=== PATIENT | female | born 1950 | race Caucasian/White ===

== ENCOUNTER 2020-03-09 07:29 | Outpatient (REF) | payer MEDICARE, SELFPAY ==
--- NOTE | 2020-03-09 07:34 | MM_ITS ---
EXAMINATION: MM SCREENING DIGITAL BREAST TOMOSYNTHESIS, BILATERAL CLINICAL INFORMATION: Screening. Asymptomatic. The lifetime risk of breast cancer based on the Tyrer-Cuzick Model is 5%. COMPARISON: Mammography: 07/27/2017, 12/13/2015 TECHNIQUE: Digital breast tomosynthesis is performed in both the craniocaudal and mediolateral oblique views along with computer-aided detection (CAD). Synthesized 2D images are generated from the tomosynthesis. Additional exaggerated left CC view is provided. FINDINGS: There are scattered areas of fibroglandular density (ACR BI-RADS breast composition Category b). There are no significant masses, abnormal calcifications, or other abnormalities. The axilla and skin contours are unremarkable. MM/MM tomosynthesis screening BI IMPRESSION: No mammographic evidence of malignancy. ASSESSMENT: BI-RADS 1: Negative RECOMMENDATION: Routine annual mammography screening. This patient's information was entered into a reminder system with a target due date for their next mammogram.
== END 2020-03-09 07:30 | disposition home or self-care (01) ==
LOC: HO.MAMMO 07:29
PROVIDERS: PCP Internal Medicine; Visit Provider Internal Medicine
DX: Z12.31 Encounter for screening mammogram for malignant neoplasm of breast (principal)
CPT/HCPCS: 77063; 77067

== ENCOUNTER 2020-10-07 12:59 | Outpatient (REF) | payer MEDICARE, SELFPAY ==
[2020-10-07 13:03] LABS: MANUAL DIFF FLAG NO
[2020-10-07 13:10] LABS: Basophils Absolute Auto 0.1 X10*3/uL (0.0-0.2); Basophils Percent Auto 0.6 % (0-2); Eosinophils Absolute Auto 0.5 X10*3/uL (0.0-0.4); Eosinophils Percent Auto 5.1 % (0-4); Hematocrit 39.2 % (37-47); Hemoglobin 11.9 g/dl (12.0-16.0); Imm Gran Abs Auto 0.03 X10*3/uL (0.00-0.03); Imm Gran Pct Auto 0.3 % (0.0-0.4); Lymphocytes Absolute Auto 3.3 X10*3/uL (1.2-4.9); Lymphocytes Percent Auto 36.8 % (20-40); Mean Corpuscular HGB Conc 30.4 g/dl (31.0-35.0); Mean Corpuscular Hemoglobin 24.5 pg (27.0-33.0); Mean Corpuscular Volume 80.7 fL (80-98); Mean Platelet Volume 11.8 fL (9.4-12.3); Monocytes Absolute Auto 0.7 X10*3/uL (0.1-1.2); Monocytes Percent Auto 7.5 % (2-11); Neutrophils Absolute Auto 4.5 X10*3/uL (2.0-8.3); Neutrophils Percent Auto 49.7 % (45-73); Platelet Count 355 X10*3/uL (160-400); Red Blood Count 4.86 X10*6/uL (4.20-5.50)
[2020-10-07 14:02] LABS: Alanine Aminotransferase 19 U/L (0-31); Alkaline Phosphatase 81 U/L (39-117); Anion Gap 16 (12-20); Aspartate Amino Transferase 20 U/L (5-31); Bilirubin Total 0.4 mg/dL (0.0-1.0); Blood Urea Nitrogen 30 mg/dL (9-16); Calcium 9.7 mg/dL (8.4-10.2); Carbon Dioxide 23 mmol/L (22-29); Chloride 106 mmol/L (96-108); Cholesterol 214 mg/dL; Estimated Glomerular Filt Rate 38; Glucose Fasting 90 mg/dL (60-99); HDL Cholesterol 74 mg/dL; LDL Cholesterol Calculated 114 mg/dl; Potassium 4.6 mmol/L (3.3-5.1); Sodium 140 mmol/L (135-145); Triglycerides 133 mg/dL
[2020-10-07 14:06] LABS: Reflex LDLD? No
[2020-10-07 14:07] LABS: Glucose Urine UA NEG (NEG); Leukocyte Esterase Urine TRACE (NEG); Nitrite Urine NEG (NEG); Urine Blood NEG (NEG); Urine Ketones NEG (NEG); Urine Protein NEG (NEG-TRACE)
[2020-10-07 14:13] LABS: Appearance Urine CLEAR; Color Urine YELLOW; Vitamin D 25-OH Total 36.1 ng/mL (>30)
[2020-10-07 14:57] LABS: RBC Urine 0 /HPF (0); Renal Epithelial Cells Urine TRACE /LPF; Squamous Epithelial Cell Urine 1+ /LPF
== END 2020-10-07 13:00 | disposition home or self-care (01) ==
LOC: HO.LNP 12:59
PROVIDERS: Visit Provider Internal Medicine
DX: E78.00 Pure hypercholesterolemia, unspecified (principal); E55.9 Vitamin D deficiency, unspecified; M85.80 Other specified disorders of bone density and structure, unspecified site; I10 Essential (primary) hypertension
CPT/HCPCS: 80053; 80061; 81001; 81003; 82306; 85025

== ENCOUNTER 2020-10-08 16:23 | Outpatient (REF) | payer MEDICARE, SELFPAY | END 2020-10-08 16:24 | disposition home or self-care (01) | LOC: HO.LNP 16:23 | PROVIDERS: Visit Provider Internal Medicine | DX: Z12.4 Encounter for screening for malignant neoplasm of cervix (principal) | CPT/HCPCS: 88142 ==

== ENCOUNTER 2020-12-06 10:11 | Outpatient (REF) | payer MEDICARE, SELFPAY ==
[2020-12-06 10:50] LABS: Blood Urea Nitrogen 16 mg/dL (9-16); Estimated Glomerular Filt Rate 45
== END 2020-12-06 10:12 | disposition home or self-care (01) ==
LOC: HO.LNP 10:11
PROVIDERS: Visit Provider Internal Medicine
DX: R79.9 Abnormal finding of blood chemistry, unspecified (principal)
CPT/HCPCS: 82565; 84520

== ENCOUNTER 2020-12-26 09:27 | Outpatient (REF) | payer MEDICARE, SELFPAY ==
--- NOTE | ~2020-12-26 | MM_ITS ---
EXAMINATION: BONE DENSITOMETRY CLINICAL INDICATION: Encounter for screening for osteoporosis. COMPARISON: Previous BD dated 10/24/2019 and baseline BD dated 10/05/2014. TECHNIQUE: Using a [employer] Messenger DXA System (software version: 13.1) manufactured by [employer], dual-energy x-ray absorptiometry was performed of the lumbar spine and left hip. The images are of good technical quality. Summary results are attached. FINDINGS: AP SPINE L1-L4: Current: BMD 0.867 g/cm2, Z-score -2.1, T-score -2.6, osteoporosis, 0.3% decrease from previous, 3.2% decrease from baseline (<5% change is not significant). Prior: BMD 0.870 g/cm2. Baseline: BMD 0.896 g/cm2. LEFT FEMUR, NECK: Current: BMD 0.680 g/cm2, Z-score -1.6, T-score -2.6, osteoporosis. Prior: BMD 0.750 g/cm2. Baseline: BMD 0.696 g/cm2. LEFT FEMUR, TOTAL: Current: BMD 0.765 g/cm2, Z-score -1.3, T-score -1.9, osteopenia, 5.6% decrease from previous, 2.8% decrease from baseline (<5% change is not significant). Prior: BMD 0.810 g/cm2. Baseline: BMD 0.787 g/cm2. IDENTIFIED RISK FACTORS: Height loss, menopause. HISTORY OF FRACTURE: None listed. MEDICATIONS: Vitamin D. MM/XR DEXA axial skeleton IMPRESSION: 1. DIAGNOSIS: Osteoporosis based on the lowest T-score value of -2.6 in the femoral neck and lumbar spine applying World Health Organization criteria. 2. 10-YEAR FRACTURE RISK PREDICTION, FRAX: Major osteoporotic fracture (clinical spine, forearm, hip or shoulder) 13.5%. Hip fracture 3.4%. 3. Treatment Recommendations: NOF guidelines recommend consideration for treatment in postmenopausal women and men age 50 and older presenting with the following: -A hip or vertebral (clinical or morphometric) fracture. -T-score less than or equal to -2.5 at the femoral neck or spine after appropriate evaluation to exclude secondary causes. -Low bone mass at the hip or spine and a 10-year fracture probability by FRAX of greater than or equal to 3% for hip fracture or greater than or equal to 20% for major osteoporotic fracture based on the [place] adapted WHO algorithm. 4. Other Recommendations: All treatment decisions require clinical judgment and consideration of individual patient factors, including patient preferences, comorbidities, previous drug use, risk factors not captured in the FRAX model (e.g. frailty, falls, vitamin D deficiency, increased bone turnover, interval significant decline in bone density) and possible under or overestimation of fracture risk by FRAX. Additional medical evaluation for secondary cause of low bone mineral density may be appropriate. FUTURE SCAN RECOMMENDATION: People with diagnosed cases of osteoporosis or at high risk for fracture should have regular bone mineral density tests. For patients eligible for Medicare, routine testing is allowed once every 2 years. The testing frequency can be increased to one year for patients who have rapidly progressing disease, those who are receiving or discontinuing medical therapy to restore bone mass, or have additional risk factors.
== END 2020-12-26 09:28 | disposition home or self-care (01) ==
LOC: HO.MAMMO 09:27
PROVIDERS: Visit Provider Internal Medicine
DX: Z13.820 Encounter for screening for osteoporosis (principal); M81.0 Age-related osteoporosis without current pathological fracture; Z78.0 Asymptomatic menopausal state; Z79.899 Other long term (current) drug therapy
CPT/HCPCS: 77080

== ENCOUNTER 2021-11-07 11:07 | Outpatient (REF) | payer MEDICARE, SELFPAY ==
[2021-11-07 11:12] LABS: MANUAL DIFF FLAG NO
[2021-11-07 11:30] LABS: Basophils Absolute Auto 0.1 X10*3/uL (0.0-0.2); Basophils Percent Auto 0.5 % (0-2); Eosinophils Absolute Auto 0.4 X10*3/uL (0.0-0.4); Eosinophils Percent Auto 4.7 % (0-4); Hematocrit 37.4 % (37.0-47.0); Hemoglobin 11.5 g/dl (12.0-16.0); Imm Gran Abs Auto 0.03 X10*3/uL (0.00-0.03); Imm Gran Pct Auto 0.3 % (0.0-0.4); Lymphocytes Absolute Auto 3.5 X10*3/uL (1.2-4.9); Lymphocytes Percent Auto 38.6 % (20-40); Mean Corpuscular HGB Conc 30.7 g/dl (31.0-35.0); Mean Corpuscular Volume 78.1 fL (80.0-98.0); Mean Platelet Volume 11.4 fL (9.4-12.3); Monocytes Absolute Auto 0.6 X10*3/uL (0.1-1.2); Monocytes Percent Auto 6.5 % (2-11); Neutrophils Absolute Auto 4.5 x10*3/uL (2.0-8.3); Neutrophils Percent Auto 49.4 % (45-73); Platelet Count 355 X10*3/uL (160-400); Red Blood Count 4.79 X10*6/uL (4.20-5.50); Red Cell Distribution Width 15.9 % (11.0-16.0); White Blood Count 9.2 X10*3/uL (4.8-10.8)
[2021-11-07 11:57] LABS: Alanine Aminotransferase 13 U/L (0-31); Albumin Level 3.7 g/dL (3.5-5.0); Alkaline Phosphatase 76 U/L (39-117); Anion Gap 16 (12-20); Aspartate Amino Transferase 15 U/L (5-31); Bilirubin Total 0.4 mg/dL (0.0-1.0); Blood Urea Nitrogen 22 mg/dL (9-16); Calcium 8.9 mg/dL (8.4-10.2); Carbon Dioxide 25 mmol/L (22-29); Chloride 107 mmol/L (96-108); Cholesterol 215 mg/dL; Estimated Glomerular Filt Rate 41; Glucose Fasting 81 mg/dL (60-99); HDL Cholesterol 76 mg/dL; LDL Cholesterol Calculated 113 mg/dl; Sodium 144 mmol/L (135-145); Total Protein 6.7 g/dL (6.5-8.0); Triglycerides 131 mg/dL
[2021-11-07 12:02] LABS: Vitamin D 25-OH Total 29.3 ng/mL (>30)
== END 2021-11-07 11:08 | disposition home or self-care (01) ==
LOC: HO.LNP 11:07
PROVIDERS: Visit Provider Internal Medicine
DX: E78.00 Pure hypercholesterolemia, unspecified (principal); E55.9 Vitamin D deficiency, unspecified; I10 Essential (primary) hypertension
CPT/HCPCS: 80053; 80061; 82306; 85025

== ENCOUNTER 2021-11-10 15:43 | Outpatient (REF) | payer MEDICARE, SELFPAY ==
[2021-11-10 16:01] LABS: Appearance Urine CLEAR; Color Urine YELLOW; Glucose Urine UA NEG (NEG); Leukocyte Esterase Urine TRACE (NEG); Nitrite Urine NEG (NEG); Specific Gravity - Urine 1.025 (1.005-1.025); Urine Blood NEG (NEG); Urine Ketones NEG (NEG); Urine Protein NEG (NEG-TRACE)
[2021-11-10 16:10] LABS: Bacteria Urine TRACE /LPF; RBC Urine 0 /HPF (0); Squamous Epithelial Cell Urine 1+ /LPF; WBC Urine 0-2 /HPF (0-4)
[2021-11-10 16:19] LABS: Iron 52 mcg/dL (30-160); Percent Iron Saturation 12 % (15-50); Total Iron Binding Capacity 449 mcg/dL (228-428); Unsaturated Iron Binding 397 ug/dL
== END 2021-11-10 15:44 | disposition home or self-care (01) ==
LOC: HO.LNP 15:43
PROVIDERS: Visit Provider Internal Medicine
DX: E78.00 Pure hypercholesterolemia, unspecified (principal); I10 Essential (primary) hypertension; R71.8 Other abnormality of red blood cells
CPT/HCPCS: 81001; 83540

== ENCOUNTER 2022-01-05 05:45 | Outpatient (REF) | payer MEDICARE, SELFPAY | END 2022-01-05 05:46 | disposition home or self-care (01) | LOC: HO.HOSX 05:45 | PROVIDERS: Visit Provider Physician Assistant | DX: Z13.89 Encounter for screening for other disorder (principal) ==

== ENCOUNTER 2022-05-08 10:48 | Outpatient (REF) | payer MEDICARE, SELFPAY ==
[2022-05-08 12:07] LABS: Alanine Aminotransferase 23 U/L (0-31); Albumin Level 3.8 g/dL (3.5-5.0); Alkaline Phosphatase 86 U/L (39-117); Aspartate Amino Transferase 19 U/L (5-31); Bilirubin Direct 0.2 mg/dL (0.0-0.5); Bilirubin Total 0.5 mg/dL (0.0-1.0); Cholesterol 224 mg/dL; HDL Cholesterol 68 mg/dL; LDL Cholesterol Calculated 126 mg/dl; Total Protein 6.7 g/dL (6.5-8.0); Triglycerides 153 mg/dL
[2022-05-08 13:48] LABS: Reflex LDLD? No
== END 2022-05-08 10:49 | disposition home or self-care (01) ==
LOC: HO.LNP 10:48
PROVIDERS: Visit Provider Internal Medicine
DX: E78.00 Pure hypercholesterolemia, unspecified (principal)
CPT/HCPCS: 80061; 80076

== ENCOUNTER 2022-11-06 11:02 | Outpatient (REF) | payer MEDICARE, SELFPAY ==
[2022-11-06 11:07] LABS: MANUAL DIFF FLAG NO
[2022-11-06 11:13] LABS: Basophils Percent Auto 0.5 % (0-2); Eosinophils Absolute Auto 0.4 X10*3/uL (0.0-0.4); Eosinophils Percent Auto 5.2 % (0-4); Hematocrit 36.7 % (37.0-47.0); Imm Gran Abs Auto 0.02 X10*3/uL (0.00-0.03); Imm Gran Pct Auto 0.3 % (0.0-0.4); Lymphocytes Absolute Auto 3.1 X10*3/uL (1.2-4.9); Lymphocytes Percent Auto 39.8 % (20-40); Mean Corpuscular Hemoglobin 23.4 pg (27.0-33.0); Mean Corpuscular Volume 78.1 fL (80.0-98.0); Mean Platelet Volume 12.4 fL (9.4-12.3); Monocytes Absolute Auto 0.5 X10*3/uL (0.1-1.2); Monocytes Percent Auto 6.5 % (2-11); Neutrophils Absolute Auto 3.7 x10*3/uL (2.0-8.3); Neutrophils Percent Auto 47.7 % (45-73); Platelet Count 321 X10*3/uL (160-400); Red Cell Distribution Width 15.8 % (11.0-16.0); White Blood Count 7.7 X10*3/uL (4.8-10.8)
[2022-11-06 11:29] LABS: Alanine Aminotransferase 25 U/L (0-31); Albumin Level 3.6 g/dL (3.5-5.0); Alkaline Phosphatase 73 U/L (39-117); Anion Gap 17 (12-20); Aspartate Amino Transferase 22 U/L (5-31); Bilirubin Total 0.4 mg/dL (0.0-1.0); Blood Urea Nitrogen 26 mg/dL (9-16); Calcium 8.7 mg/dL (8.4-10.2); Carbon Dioxide 22 mmol/L (22-29); Chloride 106 mmol/L (96-108); Cholesterol 168 mg/dL; Estimated Glomerular Filt Rate 42; Glucose Fasting 88 mg/dL (60-99); HDL Cholesterol 59 mg/dL; LDL Cholesterol Calculated 89 mg/dl; Sodium 141 mmol/L (135-145); Total Protein 6.6 g/dL (6.5-8.0); Triglycerides 102 mg/dL
[2022-11-06 11:43] LABS: Vitamin D 25-OH Total 30.5 ng/mL (>30)
== END 2022-11-06 11:03 | disposition home or self-care (01) ==
LOC: HO.LNP 11:02
PROVIDERS: Visit Provider Internal Medicine
DX: E78.00 Pure hypercholesterolemia, unspecified (principal); E55.9 Vitamin D deficiency, unspecified; I10 Essential (primary) hypertension
CPT/HCPCS: 80053; 80061; 82306; 85025

== ENCOUNTER 2022-11-30 14:50 | Outpatient (AMB) | payer MEDICARE, SELFPAY ==
--- NOTE | 2022-11-30 14:59 | MHC.OFFVIS ---
Intake Vital Signs 11/30/22 15:00 Height 5 ft 4.5 in Weight 248 lb BMI 41.9 BP 139/71 Blood Pressure Location Rt brachial Position Sitting Pulse 78 Intake Visit Reasons: iron deficiency Intake Note: Patient presents to in office visit today as a new patient for iron deficiency. CC: RUQ abd pain when bending down a certain way, small poops , and GERD. Denies other GI symptoms today. Allergies No Known Allergies Allergy (Verified 11/30/22 15:03) HPI HPI Comments History of Present Illness Details This is a 72 year old female with no significant PMH who is here for NELSY and hemoccult positive stool. Pt reports RUQ discomfort on certain positions such as bending down or moving in certain direction that has been ongoing x year. Otherwise, no N,V, changes in stool, melena or hematochezia. No fam hx of CRC. Last colo was in [address] Queen alongside an EGD. Esophagitis, colo normal. Got scheduled for a repeat colo in 2019 which got canceled due to pandemic and the pt did not remember to reschedule. On review of labs, appears to have had iron deficiency anemia x 1 year and has not changed much over the year. Pt does report taking a multivitamin that also contains iron. More recently when she was seen by her PCP also got a FOBT which was positive. PFSH Surgical History (Updated 11/30/22 @ 15:07 by ANDREZ Dye) H/O colonoscopy H/O left knee surgery S/P skin biopsy Family History (Updated 11/30/22 @ 15:08 by ANDREZ Dye) Paternal Grandfather Stomach cancer Social History (Updated 11/30/22 @ 15:07 by ANDREZ Dye) Alcohol intake: never Patient Tobacco Use Status: Never used Tobacco Review of Systems Const All systems reviewed & are unremarkable except as noted in HPI and below Physical Exam Vital Signs: Last Vital Signs Pulse 78 11/30/22 15:00 BP 139/71 11/30/22 15:00 BMI result Body Mass Index 41.9 Gen appear: NAD HEENT: nonicteric, no cervical lymphadenopathy Chest: CTA CVS: Regular S1/S2 Abd: soft, nontender, nondistended, bowel sounds + Ext: no peripheral edema Neuro: A/Ox3, noted to move all extremities spontaneously Psych: interacting appropriately Assessment & Plan Assessment & Plan (1) Iron deficiency anemia: Code(s): D50.9 - Iron deficiency anemia, unspecified Plan Longstanding iron deficiency anemia that has not progressed however FOBT positive now. Ddx include esophagitis, gastritis, PUD, large friable polyp or mass. -? Check CBC, iron studies -? EGD/colo to be booked in the next few weeks -? Split PEG prep instructions reviewed with the pt and handout given as well. Follow up after procedures Orders: Orders Ferritin Today D50.9 - Iron deficiency anemia, unspecified IRON PROFILE Today D50.9 - Iron deficiency anemia, unspecified Complete Blood Count no Diff Today D50.9 - Iron deficiency anemia, unspecified Medications: New peg 3350-electrolytes 236-22.74-6.74 -5.86 gram (Golytely) as per split prep instructions, until fecal effluent is clear 240 mL PO Q10M 4,000 mL 0RF colonoscopy Coding Level of Care Code New Pt Level 4 (28004) Diagnoses Iron deficiency anemia D50.9
[2022-11-30 15:00] VITALS: BP 139/71; PULSE 78; BMI 41.9
== END 2022-11-30 16:58 | disposition home or self-care (01) ==
PROVIDERS: PCP Internal Medicine; Visit Provider Internal Medicine
DX: D50.9 Iron deficiency anemia, unspecified (principal)
CPT/HCPCS: 99204

== ENCOUNTER → 2022-11-30 14:50 | Outpatient (BNVA) | payer MEDICARE, SELFPAY | PROVIDERS: PCP Internal Medicine; Visit Provider Internal Medicine | DX: D50.9 Iron deficiency anemia, unspecified (principal) | CPT/HCPCS: 99202 ==

== ENCOUNTER 2022-12-18 09:35 | Outpatient (REF) | payer MEDICARE, SELFPAY ==
[2022-12-18 10:50] LABS: Hematocrit 35.7 % (37.0-47.0); Hemoglobin 10.8 g/dl (12.0-16.0); Mean Corpuscular HGB Conc 30.3 g/dl (31.0-35.0); Mean Corpuscular Hemoglobin 23.5 pg (27.0-33.0); Mean Corpuscular Volume 77.6 fL (80.0-98.0); Mean Platelet Volume 11.6 fL (9.4-12.3); Platelet Count 346 X10*3/uL (160-400); Red Cell Distribution Width 15.1 % (11.0-16.0); White Blood Count 7.8 X10*3/uL (4.8-10.8)
[2022-12-18 11:29] LABS: Iron 51 mcg/dL (30-160); Percent Iron Saturation 16 % (15-50); Total Iron Binding Capacity 324 mcg/dL (228-428); Unsaturated Iron Binding 273 ug/dL
[2022-12-18 11:46] LABS: Ferritin 15 ng/mL (10-250)
== END 2022-12-18 09:36 | disposition home or self-care (01) ==
LOC: HO.LAB 09:35
PROVIDERS: PCP Internal Medicine; Visit Provider Internal Medicine
DX: D50.9 Iron deficiency anemia, unspecified (principal)
CPT/HCPCS: 36415; 82728; 83540; 85027

== ENCOUNTER 2023-02-04 10:21 | Day surgery (SDC) | payer MEDICARE, SELFPAY ==
[2023-02-02 10:43] VITALS: BMI 41.9
--- NOTE | 2023-02-03 10:36 | HO.ANESPROP2 ---
Documented by User: Sierra Campoverde NP 02/03/23 10:37 HPI - Anesthesia Eval Consult details Narrative: 72yo F for Upper Endoscopy and Colonoscopy PMFSH Active Problems Active Problems: All Active Problems (Updated 12/01/22 @ 14:08 by Kiki Alvarado MD) Iron deficiency anemia (Acute) Past Medical History Medical History (Updated 02/04/23 @ 10:34 by Leann Patel RN) High cholesterol HTN (hypertension) Family History Family History (Updated 11/30/22 @ 15:08 by ANDREZ Dye) Paternal Grandfather Stomach cancer Surgical History Surgical History (Updated 11/30/22 @ 15:07 by ANDREZ Dye) H/O left knee surgery S/P skin biopsy H/O colonoscopy Social History Social History (Updated 11/30/22 @ 15:07 by ANDREZ Dye) Alcohol intake: never Patient Tobacco Use Status: Never used Tobacco Use of substances other than those prescribed or required for medical reasons: No Are you DNR?: No Advance Directives: No Advance Directives Information Provided: Yes Meds Allergies Allergy/AdvReac Type Severity Reaction Status Date / Time walnut Allergy Unknown Verified 02/04/23 10:45 Home Medications Medication Instructions Recorded Confirmed Last Taken Type atorvastatin 40 mg tablet 40 mg PO DAILY 11/30/22 Unknown History cholecalciferol (vitamin D3) 25 25 mcg PO DAILY 11/30/22 Unknown History mcg (1,000 unit) capsule omeprazole magnesium 20 mg 20 mg PO DAILY 11/30/22 Unknown History tablet,delayed release (Prilosec OTC) valsartan 320 1 tab PO DAILY 11/30/22 Unknown History mg-hydrochlorothiazide 12.5 mg tablet vit C 250 mg-vit E 90 mg-zinc 40 1 tab PO BID 11/30/22 Unknown History mg-copper 1 [id number] capsule (PreserVision AREDS-2) Exam Exam Date and Time: February 03, 2023 1036 Height,Weight and Vital Signs: Height 5 ft 4.5 in Weight 112.491 kg Pertinent Lab Results Pertinent Lab Results: Laboratory Tests 11/06/22 11/06/22 12/18/22 07:30 07:30 09:50 WBC 7.8 Hgb 10.8 L Hct 35.7 L Plt Count 346 Sodium 141 Potassium 4.0 Chloride 106 Carbon Dioxide 22 BUN 26 H Creatinine 1.25 Assessment and Plan Assessment Anesthesia Assessment: Chart Reviewed Documented by User: Guilherme Charles MD 02/04/23 11:16 [facility] Past Medical History Medical History (Updated 02/04/23 @ 10:34 by Leann Patel RN) High cholesterol HTN (hypertension) Family History Family History (Updated 11/30/22 @ 15:08 by ANDREZ Dye) Paternal Grandfather Stomach cancer Family history of problems with anesthesia: No Surgical History Surgical History (Updated 11/30/22 @ 15:07 by ANDREZ Dye) H/O left knee surgery S/P skin biopsy H/O colonoscopy History of Problems with Anesthesia: No Social History Social History (Updated 11/30/22 @ 15:07 by ANDREZ Dye) Alcohol intake: never Patient Tobacco Use Status: Never used Tobacco Use of substances other than those prescribed or required for medical reasons: No Are you DNR?: No Advance Directives: No Advance Directives Information Provided: Yes Meds Allergies Allergy/AdvReac Type Severity Reaction Status Date / Time walnut Allergy Unknown Verified 02/04/23 10:45 Home Medications Medication Instructions Recorded Confirmed Last Taken Type atorvastatin 40 mg tablet 40 mg PO DAILY 11/30/22 Unknown History cholecalciferol (vitamin D3) 25 25 mcg PO DAILY 11/30/22 Unknown History mcg (1,000 unit) capsule omeprazole magnesium 20 mg 20 mg PO DAILY 11/30/22 Unknown History tablet,delayed release (Prilosec OTC) valsartan 320 1 tab PO DAILY 11/30/22 Unknown History mg-hydrochlorothiazide 12.5 mg tablet vit C 250 mg-vit E 90 mg-zinc 40 1 tab PO BID 11/30/22 Unknown History mg-copper 1 [id number] capsule (PreserVision AREDS-2) Exam Airway Mallampati Class: II TM Dist: <=3cm Neck ROM: Full Loose/Missing/Broken Teeth: No Heart: ok Lungs: ok Assessment and Plan Assessment Anesthesia Assessment: Anesthesia Plan Discussed Final Anesthetic Review Family History of Problems with Anesthesia: No History of Problems with Anesthesia: No NPO: Yes ASA Class: III Final Preanesthetic Review: No Changes in Pt Med Stat, Meds/Allgs Chart Reviewed, Consent Obtained/Reviewed and Anes Risks/Benef Reviewed Patient Risk: Intermediate Procedure Risk: Intermediate Anesthetic Plan Anesthetic Plan: MAC: and Agree w/ Assess. and Plan Disposition: Standard PACU
[2023-02-04 10:54] VITALS: BP 151/79; PULSE 100; RESP 16; TEMP 36.9; O2SAT 97
--- NOTE | 2023-02-04 11:03 | P.OP_ITS ---
Operative Note Operative Note Date of Service: 02/04/23 Narrative: Procedure:?Esophagogastroduodenoscopy and colonoscopy Endoscopist:?Kiki Alvarado MD Indication:?Iron deficiency anemia Anesthesia Provider:?Dr González Cabrera Anesthesia Type:?MAC Instrument:?Olympus GIF-H190, [id number]-[id number] Colonoscopy Procedure:? The procedure, indications, preparation and potential complications were reviewed with the patient who indicated understanding and gave written informed consent to proceed. A digital rectal exam was performed which was abnormal for ext hemorrhoids.? A distal attachment cap was affixed to the tip of the scope and the colonoscope was then inserted through the anus and advanced through the colon to the cecum at 75 cm and terminal ileum. Appendiceal orifice and ileocecal valve were identified. Mucosa was carefully examined under high definition white light as the instrument was slowly withdrawn in a retrograde panoramic fashion. Retroflexion was performed in rectum. The procedure was not difficult. There were no immediate obvious complications. The quality of the prep was BBPS: 3+2+2 = adequate Withdrawal time: 11 minutes Limitations: No limitation. Findings: Mucosa: Mucosa was normal to cecum and terminal ileum. Protruding lesions: * 1 sessile polyp of size 4 mm was noted in the descending colon. Cold snare polypectomy was performed. The polyp was completely removed and retrieved. * Large internal hemorrhoids with stigmata of recent bleeding. EGD Procedure:?? The patient was then turned for the upper endoscopy. The endoscope was introduced through the bite block and advanced to the second part of duodenum. The mucosa was carefully examined on slow withdrawal of the endoscope. There were no immediate complications. Patient tolerated the procedure well. EGD Findings:? * Esophagus:?Tortuous esophagus with tertiary contraction. There was a large paraesophageal hernia with the diaphragmatic pinch at 36 cm and the Z line at 30 cm. * Stomach: Too numerous to count pale appearing polyps were noted in the cardia and fundus of the stomach. COld forceps polypectomies were done for larger ones and sent for histology. The gastric rugal folds were very thick and the stomach was somewhat difficult to insufflate completely. Retroflexion was performed in the cardia showed Hill grade IV hiatal hernia. Random cold forceps biopsies were taken for histology. * Duodenum:?Normal duodenal mucosa noted to the extent examined. Impression: 1. Tortuous esophagus with tertiary contractions 2. Paraesophageal hernia 3. Gastric polyps (biopsies) 4. Thickened gastric folds and difficult to insufflate stomach (biopsy) 5. Normal duodenum 6. Colon and terminal ileum mucosa normal 7. 1 polyp removed 8. Internal and external hemorrhoids Recommendations:?? * Await pathology results. * Will get an UGIS for radiographic evidence of distensibility of the stomach as well as contrast enhanced CT abd/pel to r/o linitis plastica * Colonoscopy in 7-10 years if polyp is an adenoma, 5 years if it is an SSL.
--- NOTE | 2023-02-04 11:03 | MHC.SHP ---
Pre-Procedural Eval Section A Date of Service: 02/04/23 Section B Chief Complaint: Iron deficiency anemia Relevant Social History: None Present Medications: see Short Stay Collaborative assessment Medical History: No relevant PMH History of Previous Operations: No relevant previous surgery Allergies: Allergies Allergy/AdvReac Type Severity Reaction Status Date / Time walnut Allergy Unknown Verified 02/04/23 10:45 Review of Systems Review of Systems Comment: Ten point ROS negative Exam Exam Comment: Gen appear: No acute distress HEENT: no icterus Chest: No overt resp distress Abd: soft, nontender, nondistended Psych: Stable affect, answering questions appropriately Neuro: A/Ox3 noted to move all extremities spontaneously Ext: no peripheral edema Plan Diagnosis/Plan: Unchanged I have reviewed the history and physical and performed a pertinent physical examination on my patient. No changes have occurred unless specified. Time Spent With Patient Time: Total time managing care of this patient today ____ minutes.
[2023-02-04 13:45] VITALS: BP 121/68; PULSE 83; RESP 16; TEMP 36.4; O2SAT 99
[2023-02-04 14:00] VITALS: BP 124/67; PULSE 66; RESP 16; TEMP 36.4; O2SAT 99
== END 2023-02-04 14:37 | disposition home or self-care (01) ==
PROVIDERS: PCP Internal Medicine; Visit Provider Internal Medicine
PROC: (CPT 43239; principal; 2023-02-04 12:20)
DX: K31.7 Polyp of stomach and duodenum (principal); K29.80 Duodenitis without bleeding; K22.4 Dyskinesia of esophagus; K44.9 Diaphragmatic hernia without obstruction or gangrene; K31.89 Other diseases of stomach and duodenum; K64.8 Other hemorrhoids; K64.4 Residual hemorrhoidal skin tags; K63.5 Polyp of colon; K21.9 Gastro-esophageal reflux disease without esophagitis; D50.9 Iron deficiency anemia, unspecified
CPT/HCPCS: 43239; 45385; 88305; 88342

== ENCOUNTER → 2023-02-04 10:21 | Outpatient (BNV) | payer MEDICARE, SELFPAY | PROVIDERS: PCP Internal Medicine; Visit Provider Internal Medicine | DX: D50.9 Iron deficiency anemia, unspecified (principal); K31.7 Polyp of stomach and duodenum; K22.89 Other specified disease of esophagus; K29.80 Duodenitis without bleeding; K63.5 Polyp of colon; K64.8 Other hemorrhoids | CPT/HCPCS: 43239; 45385 ==

== ENCOUNTER 2023-02-23 09:53 | Outpatient (AMB) | payer MEDICARE, SELFPAY ==
--- NOTE | 2023-02-23 09:58 | MHC.OFFVIS ---
Intake Vital Signs 02/23/23 10:00 Height 5 ft 4.5 in Weight 246 lb 14.684 oz BMI 41.7 BP 165/74 H Blood Pressure Location Lt brachial Position Sitting Pulse 80 Intake Visit Reasons: S/P EGD, [place]; Dr. Alvarado Intake Note: Lianna presents in the office as a follow up to her double. CC: Just curious of some of the results that she was told after the procedures. Allergies walnut Allergy (Verified 02/04/23 10:45) Unknown HPI HPI Comments History of Present Illness Details This is a 72 year old female with no significant PMH who is here for NELSY and hemoccult positive stool. 11/30/22: Pt reports RUQ discomfort on certain positions such as bending down or moving in certain direction that has been ongoing x year. Otherwise, no N,V, changes in stool, melena or hematochezia. No fam hx of CRC. Last colo was in [address] Queen alongside an EGD. Esophagitis, colo normal. Got scheduled for a repeat colo in 2019 which got canceled due to pandemic and the pt did not remember to reschedule. On review of labs, appears to have had iron deficiency anemia x 1 year and has not changed much over the year. Pt does report taking a multivitamin that also contains iron. More recently when she was seen by her PCP also got a FOBT which was positive. EGD/colo 02/04/23: 1. Tortuous esophagus with tertiary contractions 2. Paraesophageal hernia 3. Gastric polyps (biopsies) 4. Thickened gastric folds and difficult to insufflate stomach (biopsy) 5. Normal duodenum 6. Colon and terminal ileum mucosa normal 7. 1 polyp removed 8. Internal and external hemorrhoids Path: A. Colon, descending, polyp: Hyperplastic polyp. B. Duodenum, biopsy: Duodenal mucosa with preserved villi and focal mild features of chronic/ non-specific duodenitis. C. Stomach, random, thickened gastric fold, biopsy: Gastric body mucosa with focal minimal chronic inactive inflammation and features suggesting proton pump inhibitor effect with incipient fundic gland polyp formation; negative for intestinal metaplasia and dysplasia. D. Gastric polyps, biopsy: Fundic gland polyps with focal minimal chronic inactive inflammation; negative for intestinal metaplasia and dysplasia. 02/23/23: Findings of bidirectional endoscopy reviewed with the pt including apparent incomplete insufflation on EGD. Pt remains largely asymptomatic. Further imaging to assess for stomach distention for concern of linitis already ordered on the day of endoscopy. She has not yet heard from Radiology about schedulung the CT or the UGIS, will follow up on this with the team. [facility] Medical History (Updated 02/05/23 @ 13:03 by Kiki Alvarado MD) High cholesterol HTN (hypertension) Surgical History (Updated 02/23/23 @ 10:01 by CORAZON Jovel) History of esophagogastroduodenoscopy (EGD) H/O left knee surgery S/P skin biopsy H/O colonoscopy Family History (Updated 11/30/22 @ 15:08 by ANDREZ Dye) Paternal Grandfather Stomach cancer Social History (Updated 11/30/22 @ 15:07 by ANDREZ Dye) Alcohol intake: never Patient Tobacco Use Status: Never used Tobacco Review of Systems Const All systems reviewed & are unremarkable except as noted in HPI and below Physical Exam Vital Signs: Last Vital Signs Pulse 80 02/23/23 10:00 BP 165/74 H 02/23/23 10:00 BMI result Body Mass Index 41.7 Gen appear: NAD HEENT: nonicteric, no cervical lymphadenopathy Chest: CTA CVS: Regular S1/S2 Abd: soft, nontender, nondistended, bowel sounds + Ext: no peripheral edema Neuro: A/Ox3, noted to move all extremities spontaneously Psych: interacting appropriately Assessment & Plan Assessment & Plan (1) Iron deficiency anemia: Code(s): D50.9 - Iron deficiency anemia, unspecified (2) Gastric wall thickening: Code(s): K31.89 - Other diseases of stomach and duodenum Plan Longstanding iron deficiency anemia that has not progressed with prominent gastric folds and subjective incomplete distention noted on EGD. H Pylori negative. Ddx include gastritis, linitis plastica. - CT abd/pel with contrast - UGIS (both already ordered last month, msg sent to to follow up) -?Start iron supplementation, can take senna PRN for constipation with these - Recheck CBC and ferritin in 3 months - If above imaging normal and CBC improves with iron supplementation, will monitor conservatively. Follow up in 3 months Orders: Orders Ferritin 3 Months D50.9 - Iron deficiency anemia, unspecified Complete Blood Count no Diff 3 Months D50.9 - Iron deficiency anemia, unspecified Medications: New ferrous fumarate Take one pill with a few sips of orange juice. 325 mg PO DAILY 90 tabs 1RF 90 days sennosides (Natural Senna Laxative) 17.2 mg (2 x 8.6 mg) PO DAILY 180 tabs 0RF 90 days Coding Level of Care Code Est Pt Level 4 (44129) Diagnoses Iron deficiency anemia D50.9 Gastric wall thickening K31.89
[2023-02-23 10:00] VITALS: BP 165/74; PULSE 80; BMI 41.7
== END 2023-02-23 11:03 | disposition home or self-care (01) ==
PROVIDERS: PCP Internal Medicine; Visit Provider Internal Medicine
DX: D50.9 Iron deficiency anemia, unspecified (principal); K31.89 Other diseases of stomach and duodenum
CPT/HCPCS: 99214

== ENCOUNTER → 2023-02-23 09:53 | Outpatient (BNVA) | payer MEDICARE, SELFPAY | PROVIDERS: PCP Internal Medicine; Visit Provider Internal Medicine | DX: D50.9 Iron deficiency anemia, unspecified (principal); K31.89 Other diseases of stomach and duodenum | CPT/HCPCS: 99212 ==

== ENCOUNTER 2023-03-03 10:08 | Outpatient (REF) | payer MEDICARE, SELFPAY ==
--- NOTE | ~2023-03-03 | FL_ITS ---
EXAMINATION: XR FLUOROSCOPY UPPER GI WITH AIR CLINICAL INFORMATION: Epigastric pain, abnormal endoscopy COMPARISON: None. Endoscopy report from 02/05/2023 reviewed. TECHNIQUE: Fluoroscopic air contrast upper GI examination was performed utilizing standard techniques with thin and thick barium and effervescent granules. Numerous spot images were obtained. FINDINGS: Lateral cine images of the oropharynx and hypopharynx demonstrate normal swallow mechanism with normal epiglottic inversion and soft palate elevation. No tracheal penetration, glottic or subglottic aspiration identified. No nasopharyngeal reflux present. Hypopharyngeal structures appear normal without evidence of mass or diverticulum. There was no pronounced cricopharyngeal achalasia with ballooning of the hypopharynx. Dual and single contrast images of the esophagus demonstrate a patulous esophagus with diffuse nonpropulsive tertiary contractions consistent with esophageal dysmotility. No evidence of stricture, mass, or ulcerations identified. A large type III hiatal hernia is present. Gastroesophageal reflux is seen up to the thoracic inlet. Dual contrast and single contrast images of the stomach demonstrated a normal contour. The gastric mucosal folds are thickened. No masses , ulceration, or other abnormality are seen. Contrast freely passed into the gastric antrum and duodenal bulb without delay. Single and air-contrast images of the duodenal bulb demonstrate no abnormality. The duodenal sweep has a normal appearance, course, and mucosal fold appearance. The imaged proximal jejunum has a normal fold pattern and caliber. FLUOROSCOPY TIME: 4 minutes 11 seconds Number of Spot Images: 14 Number of Cine: 12 DOSE AREA PRODUCT: 3362 uGy-m2 (microgray-meter squared) FL/FL upper GI w air IMPRESSION: 1. 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 Patulous esophagus with diffuse nonpropulsive tertiary contractions consistent with esophageal dysmotility 3. Large type III hiatal hernia 4. Significant gastroesophageal reflux 5. Thickened gastric mucosal folds. This was also seen on endoscopy per report. This procedure was performed by Moe Montes PA-C, and supervised by Dr. Montaño
== END 2023-03-03 10:09 | disposition home or self-care (01) ==
LOC: HO.XRAY 10:08
PROVIDERS: PCP Internal Medicine; Visit Provider Internal Medicine
DX: K31.89 Other diseases of stomach and duodenum (principal)
CPT/HCPCS: 74246

== ENCOUNTER → 2023-03-03 10:10 | Outpatient (BNV) | payer MEDICARE, SELFPAY | PROVIDERS: PCP Internal Medicine; Visit Provider Radiology Diagnostic Radiology | DX: R10.13 Epigastric pain (principal) | CPT/HCPCS: 74246 ==

== ENCOUNTER 2023-03-18 08:54 | Outpatient (REF) | payer MEDICARE, SELFPAY ==
[2023-03-18 10:35] LABS: Anion Gap 13 (12-20); Blood Urea Nitrogen 20 mg/dL (9-16); Carbon Dioxide 27 mmol/L (22-29); Chloride 105 mmol/L (96-108); Estimated Glomerular Filt Rate 46; Glucose Random 86 mg/dL (60-115); Potassium 4.4 mmol/L (3.3-5.1); Sodium 141 mmol/L (135-145)
== END 2023-03-18 08:55 | disposition home or self-care (01) ==
LOC: HO.LAB 08:54
PROVIDERS: PCP Internal Medicine; Visit Provider Internal Medicine
DX: D50.9 Iron deficiency anemia, unspecified (principal)
CPT/HCPCS: 36415; 80048

== ENCOUNTER 2023-04-01 07:58 | Outpatient (REF) | payer MEDICARE, SELFPAY ==
[2023-04-01] MEDS: iohexoL 350 MG/ML 100 ML INFUS..BTL IV (11:12)
[2023-04-01] MEDS: Barium Sulfate Oral (Vanilla) 450 ML ORAL.SUSP 900 ML PO (11:13)
== END 2023-04-01 07:59 | disposition home or self-care (01) ==
LOC: HO.CT 07:58
PROVIDERS: PCP Internal Medicine; Visit Provider Internal Medicine
DX: K31.89 Other diseases of stomach and duodenum (principal)
CPT/HCPCS: 74177; Q9967

== ENCOUNTER 2023-05-14 10:53 | Outpatient (REF) | payer MEDICARE, SELFPAY ==
[2023-05-14 11:21] LABS: Alanine Aminotransferase 24 U/L (0-31); Albumin Level 3.6 g/dL (3.5-5.0); Alkaline Phosphatase 84 U/L (39-117); Aspartate Amino Transferase 23 U/L (5-31); Bilirubin Direct 0.2 mg/dL (0.0-0.5); Bilirubin Total 0.4 mg/dL (0.0-1.0); Cholesterol 197 mg/dL (<200); HDL Cholesterol 64 mg/dL (>40); LDL Cholesterol Calculated 112 mg/dL (<100); Total Protein 7.1 g/dL (6.5-8.0); Triglycerides 107 mg/dL (<150)
[2023-05-14 11:26] LABS: Reflex LDLD? No
== END 2023-05-14 10:54 | disposition home or self-care (01) ==
LOC: HO.LNP 10:53
PROVIDERS: Visit Provider Internal Medicine
DX: E78.00 Pure hypercholesterolemia, unspecified (principal)
CPT/HCPCS: 80061; 80076

== ENCOUNTER 2023-06-28 09:26 | Outpatient (AMB) | payer MEDICARE, SELFPAY ==
--- NOTE | 2023-06-28 09:33 | MHC.OFFVIS ---
Intake Vital Signs 06/28/23 09:43 Height 5 ft 4.5 in Weight 253 lb 15.56 oz BMI 42.9 BP 175/78 H Blood Pressure Location Lt brachial Position Sitting Pulse 99 Pulse Source Pulse Oximeter Intake Visit Reasons: 3 month follow up r/s from 06/02 Intake Note: Pt presents to the office today for a 3 month follow up. She states she is feeling well and denies any concerns at this time. Allergies walnut Allergy (Verified 06/28/23 09:45) Unknown HPI HPI Comments History of Present Illness Details This is a 72 year old female with no significant PMH who is here for thickened gastric folds and anemia. Pt reports RUQ discomfort on certain positions such as bending down or moving in certain direction that has been ongoing x year. Otherwise, no N,V, changes in stool, melena or hematochezia. No fam hx of CRC. Last colo was in [address] Queen alongside an EGD. Esophagitis, colo normal. Got scheduled for a repeat colo in 2019 which got canceled due to pandemic and the pt did not remember to reschedule. On review of labs, appears to have had iron deficiency anemia x 1 year and has not changed much over the year. Pt does report taking a multivitamin that also contains iron. More recently when she was seen by her PCP also got a FOBT which was positive. EGD/colo 02/04/23: 1. Tortuous esophagus with tertiary contractions 2. Paraesophageal hernia 3. Gastric polyps (biopsies) 4. Thickened gastric folds and difficult to insufflate stomach (biopsy) 5. Normal duodenum 6. Colon and terminal ileum mucosa normal 7. 1 polyp removed 8. Internal and external hemorrhoids Path: A. Colon, descending, polyp: Hyperplastic polyp. B. Duodenum, biopsy: Duodenal mucosa with preserved villi and focal mild features of chronic/ non-specific duodenitis. C. Stomach, random, thickened gastric fold, biopsy: Gastric body mucosa with focal minimal chronic inactive inflammation and features suggesting proton pump inhibitor effect with incipient fundic gland polyp formation; negative for intestinal metaplasia and dysplasia. D. Gastric polyps, biopsy: Fundic gland polyps with focal minimal chronic inactive inflammation; negative for intestinal metaplasia and dysplasia. 02/23/23: Findings of bidirectional endoscopy reviewed with the pt including apparent incomplete insufflation on EGD. Pt remains largely asymptomatic. Further imaging to assess for stomach distention for concern of linitis already ordered on the day of endoscopy. She has not yet heard from Radiology about schedulung the CT or the UGIS, will follow up on this with the team. 06/28/23: Had to reschedule a follow up visit due to car problems. No GI concerns today. No abd pain, N,V, D bloating, early satiety, unintentional weight loss. H Pylori neg on bx. UGIS and CT reviewed. In summary - consistent with EGD findings but no lymphadenopathy or other concerning lesion noted. [facility] Medical History High cholesterol HTN (hypertension) Surgical History History of esophagogastroduodenoscopy (EGD) H/O left knee surgery S/P skin biopsy H/O colonoscopy Family History Paternal Grandfather Stomach cancer Social History Alcohol intake: never Patient Tobacco Use Status: Never used Tobacco Review of Systems Const All systems reviewed & are unremarkable except as noted in HPI and below Physical Exam Vital Signs: Last Vital Signs Pulse 99 06/28/23 09:43 BP 175/78 H 06/28/23 09:43 BMI result Body Mass Index 42.9 NAD Abd soft, nondistended No overt resp distress a/oX3, normal gait Assessment & Plan Assessment & Plan (1) Iron deficiency anemia: Code(s): D50.9 - Iron deficiency anemia, unspecified (2) Gastric wall thickening: Code(s): K31.89 - Other diseases of stomach and duodenum Plan Longstanding iron deficiency anemia that has not progressed with prominent gastric folds and subjective incomplete distention noted on EGD. H Pylori negative. No red flags to suggest malignancy though remains on DDx. Other differentials include infiltrative disease such as amyloid, sarcoidosis, lymphoma. POlyposis frankie as diffuse FGPs noted on EGD, hypertrophic gastropathy etc. H Pylori neg. No LN or ascites noted on scan. Plan: - Recheck CBC and iron labs (pt on iron supplementation) - SPEP, UPEP - Referral to tertiary care center for deep bx and possibly EUS eval Follow up after above referral processed Orders: Orders Complete Blood Count no Diff Today D50.9 - Iron deficiency anemia, unspecified IRON PROFILE Today D50.9 - Iron deficiency anemia, unspecified Ferritin Today D50.9 - Iron deficiency anemia, unspecified Vitamin B12 and Folate Today D50.9 - Iron deficiency anemia, unspecified Protein Electrophoresis, Serum Today D50.9 - Iron deficiency anemia, unspecified Protein Electrophoresis,Ran Ur Today D50.9 - Iron deficiency anemia, unspecified Referrals Gastroenterology Referral K31.89 - Other diseases of stomach and duodenum Coding Level of Care Code Est Pt Level 4 (63367) Diagnoses Iron deficiency anemia D50.9 Gastric wall thickening K31.89
[2023-06-28 09:43] VITALS: BP 175/78; PULSE 99; BMI 42.9
== END 2023-06-28 11:16 | disposition home or self-care (01) ==
PROVIDERS: PCP Internal Medicine; Visit Provider Internal Medicine
DX: D50.9 Iron deficiency anemia, unspecified (principal); K31.89 Other diseases of stomach and duodenum
CPT/HCPCS: 99214

== ENCOUNTER 2023-06-28 09:26 | Outpatient (REF) | payer MEDICARE, SELFPAY ==
[2023-06-28 11:40] LABS: Hematocrit 38.4 % (37.0-47.0); Hemoglobin 11.5 g/dl (12.0-16.0); Mean Corpuscular HGB Conc 29.9 g/dl (31.0-35.0); Mean Corpuscular Hemoglobin 22.8 pg (27.0-33.0); Mean Platelet Volume 10.9 fL (9.4-12.3); Platelet Count 362 X10*3/uL (160-400); Red Blood Count 5.05 X10*6/uL (4.20-5.50); Red Cell Distribution Width 17.1 % (11.0-16.0); White Blood Count 9.9 X10*3/uL (4.8-10.8)
[2023-06-28 12:25] LABS: Iron 160 mcg/dL (30-160); Percent Iron Saturation 44 % (15-50); Total Iron Binding Capacity 366 mcg/dL (228-428); Unsaturated Iron Binding 206 ug/dL
[2023-06-28 12:31] LABS: Ferritin 13 ng/mL (10-250)
[2023-06-28 12:46] LABS: Folate 3.9 ng/mL (> or = 4.0); Vitamin B12 521 pg/mL (200-900)
[2023-06-30 20:49] LABS: Prot Elec - Albumin 3.5 g/dL (3.8-4.8); Prot Elec - Alpha1 0.4 g/dL (0.2-0.3); Prot Elec - Alpha2 0.9 g/dL (0.5-0.9); Prot Elec - Beta 1 0.5 g/dL (0.4-0.6); Prot Elec - Beta 2 0.5 g/dL (0.2-0.5); Prot Elec - Total Protein 6.7 g/dL (6.1-8.1)
[2023-07-01 11:04] LABS: PEU-Protein Creat Ratio Rand 0.074 (0.024-0.184); PEU-Rand. Prot/Creat Ratio 74 mg/g creat (24-184); PEU-Random Ur. Gamma Globulin 0 %; PEU-Random Urine A1 Globulin 0 %; PEU-Random Urine A2 Globulin 0 %; PEU-Random Urine Albumin 100 %; PEU-Random Urine Beta Globulin 0 %; PEU-Random Urine Creatinine 148 mg/dL (20-275); PEU-Random Urine Protein 11 mg/dL (5-24)
== END 2023-06-28 09:27 | disposition home or self-care (01) ==
LOC: HO.LAB 09:26
PROVIDERS: PCP Internal Medicine; Visit Provider Internal Medicine
DX: D50.9 Iron deficiency anemia, unspecified (principal); K31.89 Other diseases of stomach and duodenum
CPT/HCPCS: 82570; 82607; 82728; 82746; 83540; 84156; 84165; 84166; 85027; 99212

== ENCOUNTER 2023-08-27 11:45 | Outpatient (REF) | payer MEDICARE, SELFPAY ==
[2023-08-27 11:50] LABS: MANUAL DIFF FLAG NO
[2023-08-27 11:57] LABS: Basophils Absolute Auto 0.1 X10*3/uL (0.0-0.2); Basophils Percent Auto 0.7 % (0-2); Eosinophils Absolute Auto 0.4 X10*3/uL (0.0-0.4); Eosinophils Percent Auto 4.6 % (0-4); Hematocrit 38.7 % (37.0-47.0); Hemoglobin 11.7 g/dl (12.0-16.0); Imm Gran Abs Auto 0.04 X10*3/uL (0.00-0.03); Imm Gran Pct Auto 0.5 % (0.0-0.4); Lymphocytes Absolute Auto 3.1 X10*3/uL (1.2-4.9); Lymphocytes Percent Auto 35.4 % (20-40); Mean Corpuscular HGB Conc 30.2 g/dl (31.0-35.0); Mean Corpuscular Hemoglobin 23.4 pg (27.0-33.0); Mean Corpuscular Volume 77.2 fL (80.0-98.0); Mean Platelet Volume 10.8 fL (9.4-12.3); Monocytes Absolute Auto 0.5 X10*3/uL (0.1-1.2); Monocytes Percent Auto 6.1 % (2-11); Neutrophils Absolute Auto 4.6 x10*3/uL (2.0-8.3); Neutrophils Percent Auto 52.7 % (45-73); Platelet Count 353 X10*3/uL (160-400); Red Blood Count 5.01 X10*6/uL (4.20-5.50); Red Cell Distribution Width 16.2 % (11.0-16.0); White Blood Count 8.7 X10*3/uL (4.8-10.8)
[2023-08-27 12:42] LABS: Alanine Aminotransferase 18 U/L (0-31); Albumin Level 3.7 g/dL (3.5-5.0); Alkaline Phosphatase 80 U/L (39-117); Anion Gap 17 (12-20); Aspartate Amino Transferase 17 U/L (5-31); Bilirubin Total 0.4 mg/dL (0.0-1.0); Blood Urea Nitrogen 20 mg/dL (9-16); Calcium 9.4 mg/dL (8.4-10.2); Carbon Dioxide 23 mmol/L (22-29); Chloride 107 mmol/L (96-108); Estimated Glomerular Filt Rate 53; Glucose Random 89 mg/dL (60-115); Potassium 4.2 mmol/L (3.3-5.1); Sodium 143 mmol/L (135-145); Total Protein 7.3 g/dL (6.5-8.0)
== END 2023-08-27 11:46 | disposition home or self-care (01) ==
LOC: HO.LNP 11:45
PROVIDERS: Visit Provider Internal Medicine
DX: I10 Essential (primary) hypertension (principal); Z01.818 Encounter for other preprocedural examination
CPT/HCPCS: 80053; 85025

== ENCOUNTER 2023-09-03 12:32 | Outpatient (REF) | payer MEDICARE, SELFPAY ==
[2023-09-03 13:06] LABS: Iron 34 mcg/dL (30-160); Percent Iron Saturation 10 % (15-50); Total Iron Binding Capacity 348 mcg/dL (228-428); Unsaturated Iron Binding 314 ug/dL
== END 2023-09-03 12:33 | disposition home or self-care (01) ==
LOC: HO.LNP 12:32
PROVIDERS: Visit Provider Internal Medicine
DX: D50.9 Iron deficiency anemia, unspecified (principal)
CPT/HCPCS: 83540

== ENCOUNTER 2023-11-11 10:16 | Outpatient (REF) | payer MEDICARE, SELFPAY ==
[2023-11-11 10:30] LABS: MANUAL DIFF FLAG NO
[2023-11-11 10:39] LABS: Appearance Urine Clear; Color Urine Yellow; Glucose Urine UA Negative (Negative); Leukocyte Esterase Urine Negative (Negative); Nitrite Urine Negative (Negative); Specific Gravity - Urine 1.025 (1.005-1.025); Urine Blood Negative (Negative); Urine Ketones Negative (Negative); Urine Protein Negative (Neg-Trace)
[2023-11-11 10:48] LABS: Bacteria Urine None Seen (None Seen); Hyaline Casts Urine 0-2 /LPF (0-2); RBC Urine 0-2 /HPF (0-2); Squamous Epithelial Cell Urine 0-2 /HPF (0-2); WBC Urine 0-5 /HPF (0-5)
[2023-11-11 10:49] LABS: Basophils Percent Auto 0.6 % (0-2); Eosinophils Absolute Auto 0.3 X10*3/uL (0.0-0.4); Eosinophils Percent Auto 4.8 % (0-4); Hematocrit 36.4 % (37.0-47.0); Hemoglobin 11.2 g/dl (12.0-16.0); Imm Gran Abs Auto 0.02 X10*3/uL (0.00-0.03); Imm Gran Pct Auto 0.3 % (0.0-0.4); Lymphocytes Absolute Auto 2.7 X10*3/uL (1.2-4.9); Lymphocytes Percent Auto 38.5 % (20-40); Mean Corpuscular HGB Conc 30.8 g/dl (31.0-35.0); Mean Corpuscular Hemoglobin 24.2 pg (27.0-33.0); Mean Corpuscular Volume 78.6 fL (80.0-98.0); Mean Platelet Volume 11.7 fL (9.4-12.3); Monocytes Absolute Auto 0.6 X10*3/uL (0.1-1.2); Monocytes Percent Auto 8.3 % (2-11); Neutrophils Absolute Auto 3.4 x10*3/uL (2.0-8.3); Neutrophils Percent Auto 47.5 % (45-73); Platelet Count 335 X10*3/uL (160-400); Red Blood Count 4.63 X10*6/uL (4.20-5.50); Red Cell Distribution Width 16.4 % (11.0-16.0); White Blood Count 7.1 X10*3/uL (4.8-10.8)
[2023-11-11 11:21] LABS: Alanine Aminotransferase 20 U/L (0-31); Albumin Level 3.6 g/dL (3.5-5.0); Alkaline Phosphatase 74 U/L (39-117); Anion Gap 13 (12-20); Aspartate Amino Transferase 18 U/L (5-31); Bilirubin Total 0.4 mg/dL (0.0-1.0); Blood Urea Nitrogen 26 mg/dL (9-16); Calcium 9.3 mg/dL (8.4-10.2); Carbon Dioxide 24 mmol/L (22-29); Chloride 109 mmol/L (96-108); Cholesterol 190 mg/dL (<200); Estimated Glomerular Filt Rate 39; Glucose Fasting 88 mg/dL (60-99); HDL Cholesterol 58 mg/dL (>40); Iron 49 mcg/dL (30-160); LDL Cholesterol Calculated 110 mg/dL (<100); Percent Iron Saturation 16 % (15-50); Potassium 3.9 mmol/L (3.3-5.1); Sodium 142 mmol/L (135-145); Total Iron Binding Capacity 297 mcg/dL (228-428); Total Protein 6.6 g/dL (6.5-8.0); Triglycerides 112 mg/dL (<150); Unsaturated Iron Binding 248 ug/dL
[2023-11-11 11:39] LABS: Vitamin D 25-OH Total 31.5 ng/mL (>30)
== END 2023-11-11 10:17 | disposition home or self-care (01) ==
LOC: HO.LNP 10:16
PROVIDERS: Visit Provider Internal Medicine
DX: E78.00 Pure hypercholesterolemia, unspecified (principal); E55.9 Vitamin D deficiency, unspecified; I10 Essential (primary) hypertension; D50.9 Iron deficiency anemia, unspecified
CPT/HCPCS: 80053; 80061; 81001; 82306; 83540; 85025

== ENCOUNTER 2024-05-19 13:08 | Outpatient (REF) | payer MEDICARE, SELFPAY ==
[2024-05-19 13:40] LABS: Alanine Aminotransferase 19 U/L (0-31); Albumin Level 3.7 g/dL (3.5-5.0); Alkaline Phosphatase 75 U/L (39-117); Aspartate Amino Transferase 28 U/L (5-31); Bilirubin Direct 0.2 mg/dL (0.0-0.5); Bilirubin Total 0.4 mg/dL (0.0-1.0); Cholesterol 208 mg/dL (<200); HDL Cholesterol 65 mg/dL (>40); LDL Cholesterol Calculated 118 mg/dL (<100); Total Protein 7.4 g/dL (6.5-8.0); Triglycerides 127 mg/dL (<150)
--- OUTSIDE RECORDS SUMMARY | 2024-05-19 13:40 | XMS_ITS ---
Author Organization Ken Moreau MD Address [address] [place] [id number] Care Team Providers Care Drift Miner Name Role Phone KeliMore garcian Primary Care Provider Allergies No Known Allergies REASON FOR VISIT comp visit Medications Medication SIG (Take, Route, Frequency, Duration) Notes Start Date End Date Status Omeprazole 20 MG TAKE ONE CAPSULE BY MOUTH DAILY Orally Once a day Active Vitamin D-3 1000 UNIT 1 capsule Orally O nce a day 04/08/2017 Active Ibuprofen 800 MG 1 tablet Orally Thre e times a day for 30 day(s) 04/07/2016 Active Ferrous Fumarate 324 (106 Fe) MG 1 tablet Orally Three times a Week for 30 day(s) Active Ocuvite Active Valsartan-hydroCHLOROthiazi de 320-12.5 MG TAKE 1 TABLET BY MOUTH EVERY DAY Active Atorvastatin Calcium 40 MG TAKE ONE TABL ET BY MOUTH EVERY DAY for 90 Active Social History Tobacco Use: Social History Observation Description Date Details (start date - stop date) Never Smoker NA - NA Tobacco Use/Smoking Question Answer Notes Patient is a nonsmoker Additional Findings: Tobacco Non-User Cu rrent non-smoker, currently using no form of tobacco Alcohol Screen Question Answer Notes Did you have a drink contain ing alcohol in the past year? Yes How often did you have a dri nk containing alcohol in the past year? 2 to 4 times a month (2 points) How many drinks did you have on a typical day when you were drinking in the past year? 1 or 2 drinks (0 point) How often did you have 6 or more drinks on one occasion in the past year? Never (0 point) Points 2 Interpretation Negative Vital Signs Blood pressure systolic 154 mm Hg 11/25/19 24 Blood pressure diastolic 70 mm Hg 024 Height 63 in 11/25/2023 Weight 251 lbs 11/25/2023 BMI 44.46 kg/m2 11/25/2023 Encounters Encounter Location Date Provider Diagnosis Ken Moreau MD [address] [place] [id number] 11/25/2023 Ken Moreau Shortness of breath on exertion R06.02 and Pure hypercholesterolemia E78.00 Assessments Encounter Date Diagnosis (ICD Code) Assessment Notes Treatment Notes Treatment Clinical Notes Section Notes 11/25/2023 Shortness of breath on exertion (ICD-10 - R06.02) does not sound pathologic 11/25/2023 Pure hypercholesterolemia (ICD-10 - E78.00) not at goal but not high enough to increase to 80 mg Plan Of Treatment Treatment Notes Assessment Notes Shortness of breath on exertion does not sound pathologic Pure hypercholesterolemia not at goal bu t not high enough to increase to 80 mg Next Appt Details Follow Up: 6 Months, Reason: Provider Name:Ken springer, 05/26/2024 10:45:00 AM, [address] [place] [address], [address], [phone], Provider Name:Ken springer, 11/17/2024 07:15:00 AM, [address] [place] [address], [address], [phone], Provider Name:Ken springer, 11/24/2024 11:00:00 AM, [address] [place] [address], [phone], Progress Notes * Lianna CHOWDHURY MDOB:[birth year] (73 yo F)Acc No.[id number]:11/25/2023 Patient:?TRENTONLianna Torres Jhoan Provider:?Ken Moreau MD :1950???Age:73 Y???Sex:Female D ate:11/25/2023 Address:[address] [place], [place] [id number] Subjective: * Chief Complaints: * ???1. Comp visit. * HPI: ???Depression Screening:?PHQ-9?Little interest or pleasure in doing things?Not at all,?Feeling down, depressed, or hopeless?Not at all,?Trouble falling or staying asleep, or sleeping too much?Not at all,?Feeling tired or having little energy?Not at all,?Poor appetite or overeating?Not at all,?Feeling bad about yourself or that you are a failure, or have let yourself or your family down?Not at all,?Trouble concentrating on things, such as reading the newspaper or watching television?Not at all,?Moving or speaking so slowly that other people could have noticed; or the opposite, being so fidgety or restless that you have been moving around a lot more than usual?Not at all,?Thoughts that you would be better off or of hurting yourself in some way?Not at all,?Total Score?0.?Communication Needs:?Communication Needs?Does the patient have a hearing impairment?No,?Does the patient have a vision impairment??Yes,?If yes, what is the vision impairment??Glasses,?Does the patient have a cognition impairment??No.?Fall Risk:?History?Have you had any falls with injury in the past year??No,?Have you had two or more falls in the past year??No.?SDOH Questions:?SDOH Questions?In the past year have you been worried about losing housing??No,?In the past year have you or any family members you live with been unable to get any of the following when it was really needed? Check all that apply:?None.? * ROS:?Respiratory:?Patient complaining of?getting out of breath with exertion. .?Cardiovascular:?Patient denies?chest pain with exertion chest pain at rest.?Gastrointestinal:?Patient denies?change in bowel habits abdominal pain.? * Medical History:?colonoscopy [address] Queen; office visit appt made for 05/13/17 @ 4 pm w/Dr. Queen, 09/11/2019 Pt had colonoscopy sched for 08/29 and cancelled, did not want to r/s. * Family History:?Father: dece ased 50 yrs.?Mother: 85 yrs.?3 sister(s) . 3 daughter(s) . .? Father-SC Mother CHF, Denies mental health/substance abuse family history, Denies mental health/substance abuse family history, Denies mental health/substance abuse family history, No pertinent family medical history. * Social History:?Tobacco Use:?Tobacco Use/Smoking?Patient is a?nonsmoker,?Additional Findings: Tobacco Non-User?Current non-smoker, currently using no form of tobacco.?Drugs/Alcohol:?Alcohol Screen?Did you have a drink containing alcohol in the past year??Yes,?How often did you have a drink containing alcohol in the past year??2 to 4 times a month (2 points),?How many drinks did you have on a typical day when you were drinking in the past year??1 or 2 drinks (0 point),?How often did you have 6 or more drinks on one occasion in the past year??Never (0 point),?Points?2,?Interpretation?Negative.?Miscellaneous:?Caffeine: yes, frequency:, 1-2 cups per day. Children: yes. Community involvements: yes. Exercise: yes, chair yoga once a week and weights. Home smoke detector use: yes. Housing: owning. Living with: alone. Marital status: single, . 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 Pets: 1 cat. Travel outside of the [place]: no. * Medications:?Taking Omeprazo le 20 MG Capsule Delayed Release TAKE ONE CAPSULE BY MOUTH DAILY Orally Once a day , Taking Ferrous Fumarate 324 (106 Fe) MG Tablet 1 tablet Orally Three times a Week , Taking Ocuvite , Taking Vitamin D-3 1000 UNIT Capsule 1 capsule Orally Once a day , Taking Ibuprofen 800 MG Tablet 1 tablet Orally Three times a day , Taking Valsartan-hydroCHLOROthiazide 320-12.5 MG Tablet TAKE 1 TABLET BY MOUTH EVERY DAY , Taking Atorvastatin Calcium 40 MG Tablet TAKE ONE TABLET BY MOUTH EVERY DAY , Medication List reviewed and reconciled with the patient * Allergies:?N.K.D.A. Objective: * Vitals:?Ht: 63, Wt:251, BMI: 44.46, BP:154/70, Repeat BP:130/70. * ???Past Orders: ???Lab:Lipid Panel (Order Da te 11/11/2023) (Collection Date & Time - 11/11/2023 07:30 AM) ? Value Reference Range ?Triglycerides 112 <150 - mg/dL ?Cholesterol 190 <200 - m g/dL ?LDL Cholesterol Calculated 110 H <100 - mg/dL ?HDL Cholesterol 58 >40 - mg/dL ???Lab:IRON PROFILE (Order D ate 11/11/2023) (Collection Date & Time - 11/11/2023 07:30 AM) ? Value Reference Range ?Iron 49 30-160 - mcg/dL ?Total Iron Binding Capacity 297 228-428 - mcg/dL ?Percent Iron Saturation 16 15-50 - % ?Unsaturated Iron Binding 248 - ug/dL ???Lab:Comprehensive [place]. P jordon Fast (Order Date 11/11/2023) (Collection Date & Time - 11/11/2023 07:30 AM) ? Value Reference Range ?Sodium 142 135-145 - mmo l/L ?Bilirubin Total 0.4 0.0- 1.0 - mg/dL ?Aspartate Amino Transferase 18 5-31 - U/L ?Alanine Aminotransferase 20 0-31 - U/L ?Total Protein 6.6 6.5-8. 0 - g/dL ?Albumin Level 3.6 3.5-5. 0 - g/dL ?Alkaline Phosphatase 74 39-117 - U/L ?Potassium 3.9 3.3-5.1 - mmol/L ?Chloride 109 H 96-108 - mm ol/L ?Carbon Dioxide 24 22-29 - mmol/L ?Anion Gap 13 12-20 - ?Blood Urea Nitrogen 26 H 9-16 - mg/dL ?Creatinine 1.33 0.5-1.4 - mg/dL ?Estimated Glomerular Filt Rate 39 - ?Glucose Fasting 88 60-9 9 - mg/dL ?Calcium 9.3 8.4-10.2 - m g/dL ???Lab:Complete Blood Count Auto Diff (Order Date - 11/11/2023) (Collection Date & Time - 11/11/2023 07:30 AM) ? Value Reference Range ?White Blood Count 7.1 4. 8-10.8 - X10*3/uL ?Red Blood Count 4.63 4.20 -5.50 - X10*6/uL ?Hemoglobin 11.2 L 12.0-16.0 - g/dl ?Hematocrit 36.4 L 37.0-47.0 - % ?Mean Corpuscular Volume 78.6 L 80.0-98.0 - fL ?Mean Corpuscular Hemoglobin 24.2 L 27.0-33.0 - pg ?Mean Corpuscular HGB Conc 30.8 L 31.0-35.0 - g/dl ?Red Cell Distribution Width 16.4 H 11.0-16.0 - % ?Platelet Count 335 160-4 00 - X10*3/uL ?Mean Platelet Volume 11.7 9.4-12.3 - fL ?Neutrophils Percent Auto 47.5 45-73 - % ?Imm Gran Pct Auto 0.3 0. 0-0.4 - % ?Lymphocytes Percent Auto 38.5 20-40 - % ?Monocytes Percent Auto 8.3 2-11 - % ?Eosinophils Percent Auto 4.8 H 0-4 - % ?Basophils Percent Auto 0.6 0-2 - % ?NRBC Pct Auto 0.0 0.0-0. 2 - /100WBC ?Neutrophils Absolute Auto 3.4 2.0-8.3 - x10*3/uL ?Imm Gran Abs Auto 0.02 0. 00-0.03 - X10*3/uL ?Lymphocytes Absolute Auto 2.7 1.2-4.9 - X10*3/uL ?Monocytes Absolute Auto 0.6 0.1-1.2 - X10*3/uL ?Eosinophils Absolute Auto 0.3 0.0-0.4 - X10*3/uL ?Basophils Absolute Auto 0.0 0.0-0.2 - X10*3/uL ?NRBC Abs Auto 0.000 0.0-0. 012 - X10*3/uL ???Lab: ClnCatch+Micro w/r flx Cult (Order Date - 11/11/2023) (Collection Date & Time - 11/11/2023 07:30 AM) ? Value Reference Range ?Color Urine Yellow - ?Appearance Urine Clear - ?PH 6.0 5.0-9.0 - ?Glucose Urine UA Negative Neg ative - mg/dL ?Urine Blood Negative Negative - ?Specific [place] - Urine 1.025 1.005-1.025 - ?Urine Protein Negative Neg-Tr félix - mg/dL ?Urine Ketones Negative Negati ve - mg/dL ?Nitrite Urine Negative Negati ve - ?Leukocyte Esterase Urine Negative Negative - ?RBC Urine 0-2 0-2 - /HPF ?WBC Urine 0-5 0-5 - /HPF ?Squamous Epithelial Cell Urine 0-2 0-2 - /HPF ?Bacteria Urine None Seen None Seen - ?Hyaline Casts Urine 0-2 0-2 - /LPF ???Lab:Vitamin D 25-OH Total (Order Date - 11/11/2023) (Collection Date & Time - 11/11/2023 07:30 AM) ? Value Reference Range ?Vitamin D 25-OH Total 31.5 >30 - ng/mL * Examination: ???General Examination: ?GENERAL APPEARANCE:? alert, well hydrated, in no distress , female.?HEAD:? normocephalic.?EYES:? BOTH EYES, normal.?EARS:? BOTH EARS, normal.?THROAT:? no erythema, no exudate, pharynx normal.?NECK/THYROID:? no cervical lymphadenopathy, no carotid bruit, no carotid bruit.?SKIN:? good turgor.?HEART:? no murmurs, rubs, gallops, regular rate and rhythm.?LUNGS:? no wheezes, rales, rhonchi, good air movement, clear to auscultation bilaterally.?BREASTS:? no masses palpable bilaterally.?ABDOMEN:? no hepatosplenomegaly, no masses palpable, no masses palpable, soft, nontender, nondistended.?RECTAL EXAM:? stool guaiac negative, no masses palpable.?EXTREMITIES:? no edema.? Assessment: * Assessment: 1.?Shortness of breath on ex ertion - R06.02 (Primary)???2.?Pure hypercholesterolemia - E78.00??? Plan: * Treatment: 2.?Pure hypercholesterolemia ? Notes: not at goal but not high enough to increase to 80 mg?? * Follow Up:?6 Months * * The named appointment provid er may or may not be the originator of this progress note, and it is not deemed complete until electronically signed by the appointment provider. Sign off status: Pending * Provider:?Ken Moreau MD Date:?0 11/25/2023 Generated for Jody gilliam/Keven/Brianitting on:?05/19/2024 01:40 PM EST History and Physical Notes * HPI (History of Present Illness) Category Sub-Category Detail Notes Category Not es Depression Screening PHQ-9 Little inte rest or pleasure in doing things: Not at all Feeling down, depressed, or hopeless: No t at all Trouble falling or staying asleep, or sl eeping too much: Not at all Feeling tired or having little energy: N ot at all Poor appetite or overeating: Not at all Feeling bad about yourself o r that you are a failure, or have let yourself or your family down: Not at all Trouble concentrating on thi ngs, such as reading the newspaper or watching television: Not at all Moving or speaking so slowly that other people could have noticed; or the opposite, being so fidgety or restless that you have been moving around a lot more than usual: Not at all Thoughts that you would be b tutu off or of hurting yourself in some way: Not at all Total Score: 0 SDOH Questions SDOH Questions In the past year have you been worried about losing housing?: No In the past year have you or any family members you live with been unable to get any of the following when it was really needed? Check all that apply:: None Fall Risk History Have you had any falls with injury i n the past year?: No Have you had two or more falls in the year?: No Communication Needs Communication Needs Does the patient have a hearing impairment: No Does the patient have a vision impairmen t?: Yes ?If yes, what is the vision impairment?: Glasses Does the patient have a cognition impair ment?: No Examination Category Sub-Category Detail Notes Category Not es General Examination GENERAL APPEARANCE: alert, w ell hydrated, in no distress , female HEAD: normocephalic EYES: BOTH EYES, normal EARS: BOTH EARS, normal THROAT: no erythema, no exud ate, pharynx normal NECK/THYROID: no cervical lymphade nopathy, no carotid bruit, no carotid bruit HEART: no murmurs, rubs, ga llops, regular rate and rhythm LUNGS: no wheezes, rales, r honchi, good air movement, clear to auscultation bilaterally ABDOMEN: no hepatosplenomegal y, no masses palpable, no masses palpable, soft, nontender, nondistended SKIN: good turgor EXTREMITIES: no edema BREASTS: no masses palpable b ilaterally RECTAL EXAM: stool guaiac negativ e, no masses palpable
--- OUTSIDE RECORDS SUMMARY | 2024-05-19 13:41 | XMS_ITS | Clinical Summary ---
Author Organization [facility] Address [address] [place] [address] Care Team Providers Care Branch Mechanic Name Role Phone Ken Moreau Primary Care Provider [phone] Allergies No known active allergies Medications atorvastatin (LIPITOR) 40 mg tablet Take 40 mg by mouth once a day. Active omeprazole (PriLOSEC) 20 mg capsule Take 20 mg by mouth once a day. Active ferrous sulfate 325 mg (65 mg iron) tablet Take 325 mg by mouth daily with breakfast. Active vit A/vit C/vit E/zinc/copper (PRESERVISION AREDS ORAL) Take 1 tablet by mouth 2 times a day. Active valsartan-hydroc hlorothiazide (DIOVAN-HCT) 320-12.5 mg per tablet Take 1 tablet by mouth once a day. Active Active Problems Problem Noted Date Diagnosed Date Anemia 08/23/2023 High blood cholesterol 08/23/2023 High blood pressure 08/23/2023 Immunizations Name Administration Dates Next Due Covid-19, Pfizer, mRNA, Newton valent, PF 30 mcg/0.3 mL dose (for ages 12 and older) 01/19/2021,07/11/2020,06/20/2020 Covid-19, Pfizer, mRNA, Newton valent, PF, 30 mcg/0.3 mL dose, damian-sucrose (COMIRNATY)(for ages 12 and older) 09/24/2021 Covid-19, Pfizer, mRNA, Damian -sucrose Vaccine, PF, 30 mcg/0.3 mL (for age 12 y and up) 03/12/2023 INFLUENZA, SPLIT VIRUS, TRIVALENT, PF ,04/18/2018,03/30/2017,03/17 Influenza, High Dose Seasona l, Preservative Free 04/24/2021 Influenza, High Dose Seasona l, Quadrivalent PF 02/24/2022 Pneumococcal Conjugate Vacci ne, 13 Valent 04/28/2019 Pneumococcal Polysaccharide Vaccine, 23 Valent 10/08/2020 Family History Medical History Relation Name Comments Heart disease Father Heart disease Mother Breast cancer Sister Relation Name Status Comments Father (Age 50) [place] Mother Sister Alive Social History Tobacco Use Types Packs/Day Years Used Date Smoking Tobacco: Never Smokeless Tobacco: Never Tobacco Cessation:Counseling Given: Not Answered Alcohol Use Standard Drinks/Week Comments Yes 2 (1 standard drink = 0.6 oz pur e alcohol) Comments No Sex and Gender Information Value Date Recorded Sex Assigned at Female 06/30/2023 10:42 AM EDT Legal Sex Female 10:39 AM EDT Gender Identity Female 06/30/2023 10:42 AM EDT Sexual Orientation Straight 08/17/2023 10 :25 AM EDT Last Filed Vital Signs Vital Sign Reading Time Taken Comments Blood Pressure 118/63 09/16/2023 9:25 AM EDT Pulse 66 09/16/2023 9:25 AM EDT Temperature 37.6 ??C (99.7 ??F) 09/16/2023 8:33 AM ED T Respiratory Rate 18 09/16/2023 9:25 AM EDT Oxygen Saturation 100% 09/16/2023 9:25 AM EDT Inhaled Oxygen Concentration - - Weight 106.6 kg (235 lb) 08/24/2023 9:00 AM EDT Height 162.6 cm (5' 4 ) 08/24/2023 9:00 AM EDT Body Mass Index 40.34 08/24/2023 9:00 AM EDT Plan of Treatment Health Maintenance Due Date Last Done Comments Basic Metabolic Panel 1950 Cologuard 1950 Colon Cancer Screening 1950 Colonoscopy 1950 FOBT / Fit Test 1950 Hepatitis C Screening 1950 Sigmoidoscopy 1950 Mammogram 1990 Osteoporosis Screening 2000 Zoster Vaccines (1 of 2) 2000 RSV Vaccine (60+ years old and patients) (1 - Risk 60-74 years 1-dose series) 2010 DTaP,Tdap,and Td Vaccines (2 - Td or Tdap) 02/06/2023 02/06/2013 COVID-19 Vaccine ( season) 2023 03/12/2023, 09/24/2021, 01/19/2021, Additional history exists Influenza Vaccine (#1) 2023 , 04/24/2021, 04/24/2019, Additional history exists Alcohol/Substance Use Screening 04/12/2024 Depression Screening and Follow-Up 04/12/2024 Fall Risk Screening 04/12/2024 Health Care Proxy Review 04/12/2024 Social Drivers of Health Annual Screening 04/12/2024 Tobacco Screening 04/12/2042 09/16/2023 Pneumococcal Vaccine: 65+ Years Completed 10/08/2020, 04/28/2019 Statin Therapy Completed 08/23/2023 Hepatitis B Vaccines Aged Out No long er eligible based on patient's age to complete this topic Insurance MEDICARE Care Teams Branch Mechanic Relationship Specialty Start Date End Date Ken Moreau [address] [place] [address] [place] [address] PCP - General Internal Medicine 06/30/23
--- OUTSIDE RECORDS SUMMARY | 2024-05-19 13:41 | XMS_ITS ---
Author Organization Ken Moreau MD Address [address] [place], [place] [id number] Care Team Providers Care Instructor Of Spanish Name Role Phone GarthKen huber Primary Care Provider Results Component Value Reference Range Notes Complete Blood Count Auto Di ff Reviewed date:11/11/2023 01:17:14 PM Interpretation: Performing Lab:[facility], [address] [place] [phone] Notes/Report: White Blood Count 7.1 4.8-10.8 X10*3/uL Red Blood Count 4.63 4.20-5.50 X10*6/uL Hemoglobin 11.2 12.0-16.0 g/dl Hematocrit 36.4 37.0-47.0 % Mean Corpuscular Volume 78.6 80.0-98.0 fL Mean Corpuscular Hemoglobin 24.2 27.0-33.0 pg Mean Corpuscular HGB Conc 30.8 31.0-35.0 g/dl Red Cell Distribution Width 16.4 11.0-16.0 % Platelet Count 335 160-400 X10*3/uL Mean Platelet Volume 11.7 9.4-12.3 fL Neutrophils Percent Auto 47.5 45-73 % Imm Gran Pct Auto 0.3 0.0-0.4 % Lymphocytes Percent Auto 38.5 20-40 % Monocytes Percent Auto 8.3 2-11 % Eosinophils Percent Auto 4.8 0-4 % Basophils Percent Auto 0.6 0-2 % NRBC Pct Auto 0.0 0.0-0.2 /100WBC Neutrophils Absolute Auto 3.4 2.0-8.3 x10*3/u L Imm Gran Abs Auto 0.02 0.00-0.03 X10*3/uL Lymphocytes Absolute Auto 2.7 1.2-4.9 X10*3/u L Monocytes Absolute Auto 0.6 0.1-1.2 X10*3/uL Eosinophils Absolute Auto 0.3 0.0-0.4 X10*3/u L Basophils Absolute Auto 0.0 0.0-0.2 X10*3/uL NRBC Abs Auto 0.000 0.0-0.012 X10*3/uL Comprehensive [place]. Panel Fa st Reviewed date:11/11/2023 01:14:54 PM Interpretation: Performing Lab:[facility], [address] [place] [phone] Notes/Report: Sodium 142 135-145 mmol/L Potassium 3.9 3.3-5.1 mmol/L Chloride 109 96-108 mmol/L Carbon Dioxide 24 22-29 mmol/L Anion Gap 13 12-20 Blood Urea Nitrogen 26 9-16 mg/dL Creatinine 1.33 0.5-1.4 mg/dL Estimated Glomerular Filt Rate 39 NOTE: For -[place] individuals, multiply the result by 1.210. Chronic Kidney Disease: Estimated GFR < 60 mL/min/1.73m2 Severe Kidney Disease: Estimated GFR < 15 mL/min/1.73m2 Glucose Fasting 88 60-99 mg/dL Calcium 9.3 8.4-10.2 mg/dL Bilirubin Total 0.4 0.0-1.0 mg/dL Aspartate Amino Transferase 18 5-31 U/L Alanine Aminotransferase 20 0-31 U/L Total Protein 6.6 6.5-8.0 g/dL Albumin Level 3.6 3.5-5.0 g/dL Alkaline Phosphatase 74 39-117 U/L IRON PROFILE Reviewed date:11/11/2023 12:27:23 PM Interpretation: Performing Lab:[facility], [address] [place] [phone] Notes/Report: Iron 49 30-160 mcg/dL Total Iron Binding Capacity 297 228-428 mcg/d L Percent Iron Saturation 16 15-50 % Unsaturated Iron Binding 248 Lipid Panel Reviewed date:11/11/2023 12:27:03 PM Interpretation: Performing Lab:[facility], [address] [place] [phone] Notes/Report: Triglycerides 112 <150 mg/dL Desirable Triglyceride: less than 150 mg/dL Borderline High Triglyceride 150-199 mg/dL High Triglyceride: 200-499 mg/dL Very High Triglyceride: greater than or equal to 5OO mg/dL Cholesterol 190 <200 mg/dL Desirable Cholesterol: less than 200 mg/dL Borderline High Cholesterol: 200-239 mg/dL High Cholesterol: greater than 239 mg/dL LDL Cholesterol Calculated 110 <100 mg/dL Desirable LDL: less than 100 mg/dL Near Optimal/Above Optimal LDL: 110-129 mg/dL Borderline High LDL: 130-159 mg/dL High LDL: 160-189 mg/dL Very High LDL: greater than or equal to 190 mg/dL HDL Cholesterol 58 >40 mg/dL Desirable HDL: greater than 40 mg/dL Note: This HDL assay may give artificially low results in patients with liver disease. Vitamin D 25-OH Total Reviewed date:11/11/2023 12:27:31 PM Interpretation: Performing Lab:[facility], [address] [place] [phone] Notes/Report: Vitamin D 25-OH Total 31.5 >30 ng/mL Health Based Reference Values* < 20 ng/mL Deficient 20-30 ng/mL Insufficient > 30 ng/mL Sufficient *Jose Alberto ARCINIEGA. N Engl J Med. 2007;357:266-280 Care must be taken in interpreting Vitamin D results from different laboratories and methodologies. Published data demonstrated that results from patients undergoing hemodialysis may show a negative bias when tested with various automated 25-OH vitamin D assays when compared to LC-MS/MS. When testing samples from patients whose predominant form of Vitamin D is Vitamin D2, such as patients receiving Vitamin D2 supplementation, results that are subtherapeutic should be confirmed with another method such as LC-MS/MS. UA ClnCatch+Micro w/rflx Cul t Reviewed date:11/11/2023 01:16:54 PM Interpretation: Performing Lab:[facility], [address] [place] [phone] Notes/Report: Urine, Clean Catch Color Urine Yellow Appearance Urine Clear PH 6.0 5.0-9.0 Glucose Urine UA Negative Negative mg/dL Urine Blood Negative Negative Specific [place] - Urine 1.025 1.005-1.025 Urine Protein Negative Neg-Trace mg/dL Urine Ketones Negative Negative mg/dL Nitrite Urine Negative Negative Leukocyte Esterase Urine Negative Negative RBC Urine 0-2 0-2 /HPF WBC Urine 0-5 0-5 /HPF Squamous Epithelial Cell Urine 0-2 0-2 /HPF Bacteria Urine None Seen None Seen Hyaline Casts Urine 0-2 0-2 /LPF REASON FOR VISIT yearly labs Encounters Encounter Location Date Provider Diagnosis Ken Moreau MD [address] [place] [address] [place] [phone] 11/11/2023 Ken Moreau Pure hypercholestero lemia E78.00 ; Low vitamin D level E55.9 ; Hypertension, unspecified type I10 and Iron deficiency anemia, unspecified D50.9 Assessments Encounter Date Diagnosis (ICD Code) Assessment Notes Treatment Notes Treatment Clinical Notes Section Notes 11/11/2023 Pure hypercholesterolemia (ICD-10 - E78.00) 11/11/2023 Low vitamin D level (ICD-10 - E55.9) 11/11/2023 Hypertension, unspecified type (ICD-10 - I10) 11/11/2023 Iron deficiency anem ia, unspecified (ICD-10 - D50.9) Plan Of Treatment Next Appt Details Provider Name:Kne springer, 05/26/2024 10:45:00 AM, [address] [place] [address], [address] [place] [address], [phone], Provider Name:Ken springer, 11/17/2024 07:15:00 AM, [address] [place] [address], [address], [phone], Provider Name:Ken Corado ier, 11/24/2024 11:00:00 AM, [address], [address], [place], [phone], Progress Notes * Lianna CHOWDHURY MDOB:[birth year] (73 yo F)Acc No.[id number]:11/11/2023 Progress Note Patient:?Lianna CHOWDHURY Jhoan Provider:?Ken Moreau MD :1950???Age:73 Y???Sex:Female D ate:11/11/2023 Address:[address] [place] [address] [id number] Subjective: * Chief Complaints: * ???1. Yearly labs. * Medical History:? Objective: * Vitals:? Assessment: * Assessment: 1.?Pure hypercholesterolemia - E78.00 (Primary)???2.?Low vitamin D level - E55.9???3.?Hypertension, unspecified type - I10???4.?Iron deficiency anemia, unspecified - D50.9??? Plan: * Treatment: 2.?Low vitamin D level?LAB: Complete Blood Count Auto Diff (Collection Date & Time - 11/11/2023 07:30 AM) ?LAB: Comprehensive [place]. Panel Fast (Collection Date & Time - 11/11/2023 07:30 AM) ?LAB: IRON PROFILE (Collection Date & Time - 11/11/2023 07:30 AM) ?LAB: Lipid Panel (Collection Date & Time - 11/11/2023 07:30 AM) ?LAB: Vitamin D 25-OH Total (Collection Date & Time - 11/11/2023 07:30 AM) ?LAB: UA ClnCatch+Micro w/rflx Cult (Collection Date & Time - 11/11/2023 07:30 AM) 3.?Hypertension, unspecified type?LAB: Complete Blood Count Auto Diff (Collection Date & Time - 11/11/2023 07:30 AM) ?LAB: Comprehensive [place]. Panel Fast (Collection Date & Time - 11/11/2023 07:30 AM) ?LAB: IRON PROFILE (Collection Date & Time - 11/11/2023 07:30 AM) ?LAB: Lipid Panel (Collection Date & Time - 11/11/2023 07:30 AM) ?LAB: Vitamin D 25-OH Total (Collection Date & Time - 11/11/2023 07:30 AM) ?LAB: UA ClnCatch+Micro w/rflx Cult (Collection Date & Time - 11/11/2023 07:30 AM) 4.?Iron deficiency anemia, u nspecified?LAB: Complete Blood Count Auto Diff (Collection Date & Time - 11/11/2023 07:30 AM) ?LAB: Comprehensive [place]. Panel Fast (Collection Date & Time - 11/11/2023 07:30 AM) ?LAB: IRON PROFILE (Collection Date & Time - 11/11/2023 07:30 AM) ?LAB: Lipid Panel (Collection Date & Time - 11/11/2023 07:30 AM) ?LAB: Vitamin D 25-OH Total (Collection Date & Time - 11/11/2023 07:30 AM) ?LAB: UA ClnCatch+Micro w/rflx Cult (Collection Date & Time - 11/11/2023 07:30 AM) * Procedure Codes:?41230 VENIP UNCT, ROUTINE* * * The named appointment provid er may or may not be the originator of this progress note, and it is not deemed complete until electronically signed by the appointment provider. Sign off status: Pending * Provider:?Ken Moreau MD Date:?0 11/11/2023 Generated for Jody gilliam/Keven/Serina on:?05/19/2024 01:41 PM EST
--- OUTSIDE RECORDS SUMMARY | 2024-05-19 13:41 | XMS_ITS | Referral Summary ---
Author Organization [facility] Address [address] [place] [address] Care Team Providers Care Monitor Tech Name Role Phone Ken Moreau Primary Care Provider [phone] Allergies No known active allergies Medications atorvastatin [...] Administration Dates Next Due Covid-19, Pfizer, mRNA, [place] valent, PF 30 mcg/0.3 mL dose (for ages 12 and older) 01/19/2021,07/11/2020,06/20/2020 Covid-19, Pfizer, mRNA, [place] valent, PF, 30 mcg/0.3 mL dose, damian-sucrose [...] 04/28/2019 Pneumococcal Polysaccharide Vaccine, 23 Valent 10/08/2020 Social History Tobacco Use Types Packs/Day Years [...] 08/24/2023 9:00 AM EDT Plan of Treatment Not on file Insurance [facility] SUPP MEDICARE Care Teams Monitor Tech Relationship Specialty Start Date End Date Ken Moraeu [address] [place] [address] [place] [address] PCP - General Internal Medicine 06/30/23
--- OUTSIDE RECORDS SUMMARY | 2024-05-19 13:41 | XMS_ITS ---
Author Organization Ken Moreau MD Address [address] [place] [phone] Care Team Providers Care Shrub Planter Name Role Phone Lizzeth Ken Primary Care Provider REASON FOR VISIT FASTING LIPIDS Encounters Encounter Location Date Provider Diagnosis Ken Moreau MD [address] [place] [phone] 05/19/2024 Ken Moreau Pure hypercholestero lemia E78.00 Assessments Encounter Date Diagnosis (ICD Code) Assessment Notes Treatment Notes Treatment Clinical Notes Section Notes 05/19/2024 Pure hypercholesterolemia (ICD-10 - E78.00) Plan Of Treatment Pending Test Test Name Order Date Liver Panel 05/19/2024 Lipid Panel with Reflex 05/19/2024 Next Appt Details Provider Name:Ken springer, 05/26/2024 10:45:00 AM, [address], [address], [place], [place], [phone], Provider Name:Ken Corado ier, 11/17/2024 07:15:00 AM, [address], [address], [place], [phone], Provider Name:Ken Corado ier, 11/24/2024 11:00:00 AM, [address], [address], [place], [phone], Progress Notes * Lianna CHOWDHURY MDOB:[birth year] (73 yo F)Acc No.[id number]:05/19/2024 Progress Note Patient:?Lianna CHOWDHURY M Provider:?Ken Moreau MD :1950???Age:73 Y???Sex:Female D ate:05/19/2024 Address:[address] [place], [place] [phone] Subjective: * Chief Complaints: * ???1. FASTING LIPIDS. * Medical History:? Objective: * Vitals:? Assessment: * Assessment: 1.?Pure hypercholesterolemia - E78.00 (Primary)??? Plan: * Treatment: * Procedure Codes:?14754 VENIP UNCT, ROUTINE* * * The named appointment provid er may or may not be the originator of this progress note, and it is not deemed complete until electronically signed by the appointment provider. Sign off status: Pending * Provider:?Ken Moreau MD Date:?0 05/19/2024 Generated for Jody gilliam/Keven/Traysmitting on:?05/19/2024 01:41 PM EST
--- OUTSIDE RECORDS SUMMARY | 2024-05-19 13:41 | XMS_ITS | Clinical Summary ---
Author Organization [facility] Address [address] [place] [address] Care Team Providers Care Complex Manager Name Role Phone Ken Moreau MD Primary Care Provider Social History Tobacco Use Types Packs/Day Years Used Date Smoking Tobacco: Never Assessed Comments Unknown Sex and Gender Information Value Date Recorded Sex Assigned at Not on file Legal Sex Female 12:51 PM EDT Gender Identity Not on file Sexual Orientation Not on file Plan of Treatment Health Maintenance Due Date Last Done Comments Breast Cancer Screening 1950 Colorectal Cancer Screening: Annual FOBT 06/14/1999 Colorectal Cancer Screening: Colonoscopy 06/14/1999 Colorectal Cancer Screening: Sigmoidoscopy 06/14/1999 Pneumococcal Vaccine: 65+ Ye ars (1 of 1 - PCV) 06/14/2015 Influenza Vaccine (#1) 2023 Hepatitis B Vaccine Aged Out No longe r eligible based on patient's age to complete this topic Insurance MEDICARE MEDICARE Care Teams Complex Manager Relationship Specialty Start Date End Date Ken Moreau MD [address] [place] [address] [address] [place] PCP - General Internal Medicine 12/23/20
[2024-05-19 13:51] LABS: Reflex LDLD? No
== END 2024-05-19 13:09 | disposition home or self-care (01) ==
LOC: HO.LNP 13:08
PROVIDERS: Visit Provider Internal Medicine
DX: E78.00 Pure hypercholesterolemia, unspecified (principal)
CPT/HCPCS: 80061; 80076

== ENCOUNTER 2024-11-17 10:34 | Outpatient (REF) | payer MEDICARE, SELFPAY ==
--- OUTSIDE RECORDS SUMMARY | 2024-06-23 05:15 | XMS_ITS ---
Author Organization Ken Moreau MD Address [address] [place] [phone] Care Team Providers Care Director Of Corporate Strategy Name Role Phone Ken Moreau Primary Care Provider Allergies No Known Allergies REASON FOR VISIT 4 WEEK F/U Medications Medication SIG (Take, Route, Frequency, Duration) Notes Start Date End Date Status Atorvastatin Calcium 40 MG TAKE ONE TABLET BY MOUTH EVERY DAY Active Ibuprofen 800 MG 1 tablet Orally Thre e times a day for 30 day(s) 04/07/2016 Not-Taking Valsartan-hydroCHLOROthi azide 320-12.5 MG TAKE 1 TABLET BY MOUTH EVERY DAY Active Ozempic (0.25 or 0.5 MG/DOSE) 2 MG/3ML 0.25 mg Subcutaneous weekly for 30 days 05/26/2024 Not-Taking Vitamin D-3 1000 UNIT 1 capsule Orally O nce a day 04/08/2017 Active Omeprazole 20 MG TAKE ONE CAPSULE BY MOUTH DAILY Orally Once a day Active Wegovy 0.25 MG/0.5ML 0.5 mL Subcutaneous weekly for 30 days 06/23/2024 Active Ocuvite Active Ferrous Fumarate 324 (106 Fe) MG 1 tablet Orally Three times a Week for 30 day(s) Active Vital Signs Blood pressure systolic 158 mm Hg 06/24/19 25 Blood pressure diastolic 70 mm Hg 025 Height 63 in 06/23/2024 Weight 260 lbs 06/23/2024 BMI 46.05 kg/m2 06/23/2024 weight is down 1 pound since 05-26-24 Encounters Encounter Location Date Provider Diagnosis Ken Moreau MD [address] [place] [phone] 06/23/2024 Ken Moreau Hypertension, unspecified type I10 and Unintended weight gain R63.5 Assessments Encounter Date Diagnosis (ICD Code) Assessment Notes Treatment Notes Treatment Clinical Notes Section Notes 06/23/2024 Hypertension, unspecified type (ICD-10 - I10) stable, will continue current regiment 06/23/2024 Unintended weight gain (ICD-10 - R63.5) patient verbalized understanding of medication and directions for use Plan Of Treatment Medication Medication Name Sig Start Date Stop Date Notes Valsartan-hydroCHLOROthiazid e 320-12.5 MG TAKE 1 TABLET BY MOUTH EVERY DAY Wegovy 0.25 MG/0.5ML 0.5 mL Subcutaneous weekly for 30 days 06/23/2024 Treatment Notes Assessment Notes Hypertension, unspecified type stable, w ill continue current regiment Unintended weight gain patient verbalize d understanding of medication and directions for use Next Appt Details Provider Name:Ken Corado ier, 11/24/2024 11:00:00 AM, [address] [place] [address] Drive, [address], [place], [place], [phone], Progress Notes * Lianna CHOWDHURY MDOB:[birth year] (74 yo F)Acc No.[id number]:06/23/2024 Progress Notes Patient: Lianna BURGOS Provider: Dustin Moreau MD :1950 A ge:74 Y S ex:Female Date:06/23/2024 Address:[address] [place] [address] Subjective: * Chief Complaints: * 4 WEEK F/U * HPI: S ymptom(s): patient is a 74 yo female here for 4 week follow up visit, was not approved for weight loss. * ROS: G eneral/Constitutional: Denies Gisselle hills. D enies F atigue. D enies F ever. D enies H eadache. E NT: Denies S ore throat. R espiratory: Denies Gisselle ough. D enies S hortness of breath at rest. D enies S hortness of breath with exertion. G astrointestinal: Denies D iarrhea. D enies N ausea. * Medical History: * Surgical History: * Hospitalization/Major Diagno stic Procedure: * Medications: T akingOmeprazole 20 MG Capsule Delayed Release TAKE ONE CAPSULE BY MOUTH DAILY Orally Once a day Ferrous Fumarate 324 (106 Fe) MG Tablet 1 tablet Orally Three times a Week Ocuvite Vitamin D-3 1000 UNIT Capsule 1 capsule Orally Once a day Atorvastatin Calcium 40 MG Tablet TAKE ONE TABLET BY MOUTH EVERY DAY Valsartan- hydroCHLOROthiazide 320-12.5 MG Tablet TAKE 1 TABLET BY MOUTH EVERY DAY Taking Omeprazole 20 MG Capsule Delayed Release TAKE ONE CAPSULE BY MOUTH DAILY Orally Once a day Taking Ferrous Fumarate 324 (106 Fe) MG Tablet 1 tablet Orally Three times a Week Taking Ocuvite Taking Vitamin D-3 1000 UNIT Capsule 1 capsule Orally Once a day Taking Atorvastatin Calcium 40 MG Tablet TAKE ONE TABLET BY MOUTH EVERY DAY Taking Valsartan-hydroCHLOROthiazide 320-12.5 MG Tablet TAKE 1 TABLET BY MOUTH EVERY DAY Not-Taking/PRNOzempic (0.25 or 0.5 MG/DOSE) 2 MG/3ML Solution Pen-injector 0.25 mg Subcutaneous weekly Ibuprofen 800 MG Tablet 1 tablet Orally Three times a day Not-Taking/PRN Ozempic (0.25 or 0.5 MG/DOSE) 2 MG/3ML Solution Pen-injector 0.25 mg Subcutaneous weekly Not-Taking/PRN Ibuprofen 800 MG Tablet 1 tablet Orally Three times a day * Allergies: N .K.D.A.yes[Allergies Verified] Objective: * Vitals: H t: 63, Wt: 260, BMI:46.05, BP:158/70, Repeat BP:140/76, Wt-k.94. weight is down 1 pound since 05-26-24. * Examination: G eneral Examination: GENERAL APPEARANCE: a lert, well hydrated, in no distress.? HEAD: n ormocephalic. SKIN: g ood turgor. HEART: r egular rate and rhythm, no murmurs, rubs, gallops.? LUNGS: n o wheezes, rales, rhonchi, good air movement, clear to auscultation bilaterally. Assessment: * Assessment: 1. H ypertension, unspecified type - I10 (Primary) 2 . U nintended weight gain - R63.5 Plan: * Treatment: 2. U nintended weight gain Start Wegovy Solution Auto-injector, 0.25 MG/0.5ML, 0.5 mL, Subcutaneous, weekly, 30 days, 1, Refills 1. Notes: patient verbalized understanding of medication and directions for use * Procedure Codes: * * Sign off status: Completed true * Provider: Dustin Moreau MD Date: 0 06/23/2024 Generated for Jody gilliam/Keven/eTransmitting on: 0 11/17/2024 10:44 AM EDT History and Physical Notes * HPI (History of Present Illness) Category Sub-Category Detail Notes Category Not es Symptom(s) patient is a 74 yo female here for 4 week follow up visit, was not approved for weight loss Examination Category Sub-Category Detail Notes Category Not es General Examination GENERAL APPEARANCE: alert, w ell hydrated, in no distress HEAD: normocephalic HEART: regular rate and rhy thm, no murmurs, rubs, gallops LUNGS: no wheezes, rales, r honchi, good air movement, clear to auscultation bilaterally SKIN: good turgor
--- OUTSIDE RECORDS SUMMARY | 2024-11-17 10:44 | XMS_ITS | Clinical Summary ---
Author Organization [facility] Address [address] [place] [address] Care Team Providers Care Product Development Carpenter Name Role Phone Ken Moreau MD Primary [...] Colorectal Cancer Screening: Sigmoidoscopy 06/14/1999 Pneumococcal Vaccine: 50+ Ye ars (1 of 1 - PCV) 2000 Influenza Vaccine (#1) 2024 Hepatitis B Vaccine Aged Out No longe r eligible based on patient's age to complete this topic Insurance Medicare Medicare Care Teams Product Development Carpenter Relationship Specialty Start Date End Date Ken Moreau MD [address] [place] [address] [address] [place] PCP - General Internal Medicine 12/23/20
--- OUTSIDE RECORDS SUMMARY | 2024-11-17 10:44 | XMS_ITS | Clinical Summary ---
Author Organization [facility] Address [address] [place] [address] Care Team Providers Care Lab Manager Name Role Phone Ken Moreau Primary Care Provider [phone] Allergies No known active allergies Medications atorvastatin [...] cholesterol 08/23/2023 High blood pressure 08/23/2023 Immunizations Immunization Administration Dates Next Due Covid-19, Pfizer, mRNA, [place] valent, PF 30 mcg/0.3 mL dose (for ages 12 and older) 01/19/2021,07/11/2020,06/20/2020 Covid-19, Pfizer, mRNA, [place] valent, PF, 30 mcg/0.3 mL dose, damian-sucrose [...] Relation Name Status Comments Father (Age 50) [place] Mother Sister Alive Social History Tobacco Use [...] 66 09/16/2023 9:25 AM EDT Temperature 37.6 C (99.7 F) 09/16/2023 8:33 AM EDT Respiratory Rate 18 09/16/2023 9:25 AM EDT Oxygen Saturation 100% 09/16/2023 9:25 AM EDT Inhaled Oxygen Concentration - - Weight 106.6 kg (235 lb) 08/24/2023 9:00 AM EDT Height 162.6 cm (5' 4 ) 08/24/2023 9:00 AM EDT Body Mass Index 40.34 08/24/2023 9:00 AM EDT Plan of Treatment Scheduled Procedures Name Priority Associated Diagnoses Date/Ti me UPPER ENDOSCOPY WITH ENDOSCO PIC ULTRASOUND WITH POSSIBLE MODERATE SEDATION Pancreatic cyst (HCC) Health Maintenance Due Date Last Done Comments Basic Metabolic Panel 1950 Cologuard 1950 Colon Cancer Screening 1950 Colonoscopy 1950 FOBT / Fit Test 1950 Hepatitis C Screening 1950 Sigmoidoscopy 1950 Medicare AWV 06/14/1951 Mammogram 1990 Osteoporosis Screening 2000 Zoster Vaccines (1 of 2) 2000 RSV Vaccine (60+ years old and patients) (1 - Risk 60-74 years 1-dose series) 2010 DTaP,Tdap,and Td Vaccines (2 - Td or Tdap) 02/06/2023 02/06/2013 COVID-19 Vaccine ( season) 2023 03/12/2023, 09/24/2021, 01/19/2021, Additional history exists Alcohol/Substance Use Screening 04/12/2024 Depression Screening and Follow-Up 04/12/2024 Fall Risk Screening 04/12/2024 Health Care Proxy Review 04/12/2024 Social Drivers of Health Annual Screening 04/12/2024 Influenza Vaccine (#1) 2024 , 04/24/2021, 04/24/2019, Additional history exists Tobacco Screening 04/12/2042 09/16/2023 Pneumococcal Vaccine: 50+ Years Completed 10/08/2020, 04/28/2019 Hepatitis B Vaccines Aged Out No long er eligible based on patient's age to complete this topic Goals Goal Patient Goal Type Associated Problems Recent Progress Patient-Stated? Author Autogenerat ed Goal Care Plan Autogenerated Problem No Rosette Parikh Additional Health Concerns Active Problems Noted Date Diagnosed Date Autogenerated Problem 10/09/2024 Insurance [facility] MEDICARE Care Teams Lab Manager Relationship Specialty Start Date End Date Ken Moreau [address] [place] [address] dr [place]mary [place], [place] [address] PCP - General Internal Medicine 06/30/23
[2024-11-17 10:46] LABS: MANUAL DIFF FLAG NO
[2024-11-17 12:18] LABS: Hematocrit 38.7 % (37.0-47.0); Hemoglobin 11.7 g/dl (12.0-16.0); Imm Gran Abs Auto 0.03 X10*3/uL (0.00-0.03); Imm Gran Pct Auto 0.4 % (0.0-0.4); Lymphocytes Absolute Auto 3.0 X10*3/uL (1.2-4.9); Mean Corpuscular HGB Conc 30.2 g/dl (31.0-35.0); Mean Corpuscular Hemoglobin 23.8 pg (27.0-33.0); Mean Corpuscular Volume 78.7 fL (80.0-98.0); NRBC Abs Auto 0.000 X10*3/uL (0.0-0.012); NRBC Pct Auto 0.0 /100WBC (0.0-0.2); Platelet Count 377 X10*3/uL (160-400); Red Blood Count 4.92 X10*6/uL (4.20-5.50); White Blood Count 8.1 X10*3/uL (4.8-10.8)
[2024-11-17 12:19] LABS: Appearance Urine Clear; Glucose Urine UA Negative (Negative); PH 6.0 (5.0-9.0); Specific Gravity - Urine 1.020 (1.005-1.025); UMIC TRIGGER UACC YES
[2024-11-17 12:45] LABS: Alanine Aminotransferase 19 U/L (0-31); Albumin Level 3.6 g/dL (3.5-5.0); Alkaline Phosphatase 81 U/L (39-117); Anion Gap 13 (12-20); Aspartate Amino Transferase 23 U/L (5-31); Blood Urea Nitrogen 23 mg/dL (9-16); Calcium 9.1 mg/dL (8.4-10.2); Carbon Dioxide 27 mmol/L (22-29); Chloride 107 mmol/L (96-108); Cholesterol 207 mg/dL (<200); Estimated Glomerular Filt Rate 40; HDL Cholesterol 64 mg/dL (>40); Iron 61 mcg/dL (30-160); Percent Iron Saturation 18 % (15-50); Potassium 4.6 mmol/L (3.3-5.1); Sodium 142 mmol/L (135-145); Total Iron Binding Capacity 333 mcg/dL (228-428); Total Protein 6.6 g/dL (6.5-8.0); Triglycerides 165 mg/dL (<150); Unsaturated Iron Binding 272 ug/dL
== END 2024-11-17 10:35 | disposition home or self-care (01) ==
LOC: HO.LNP 10:34
PROVIDERS: Visit Provider Internal Medicine
DX: I10 Essential (primary) hypertension (principal); E78.00 Pure hypercholesterolemia, unspecified; D50.9 Iron deficiency anemia, unspecified; E55.9 Vitamin D deficiency, unspecified
CPT/HCPCS: 80053; 80061; 81001; 82306; 83540; 85025